=== PATIENT | female | born 1965 | race Caucasian/White ===

== ENCOUNTER 2021-02-20 12:17 | Emergency (ER) | payer OTHER, SELFPAY ==
--- NOTE | 2021-02-20 12:27 | XRR_ITS ---
PROCEDURE INFORMATION: Exam: XR Right Foot Exam date and time: 02/20/2021 12:27 PM Age: 55 years old Clinical indication: Injury or trauma; Other: Dropped something on 2nd toe; Blunt trauma; Toes; Right lesser toe(s); Additional info: Foot pain TECHNIQUE: Imaging protocol: XR Right foot. Views: 1 or 2 views. COMPARISON: No relevant prior studies available. FINDINGS: Bones/joints: Nondisplaced transverse fracture through the distal tuft of the 2nd digit. The rest of the osseous structures of the foot are preserved. The joint spaces are preserved. Soft tissues: Normal. XR/XR foot RT 2V [id number] IMPRESSION: Nondisplaced transverse fracture through the distal tuft of the 2nd digit.
[2021-02-20 12:41] VITALS: BP 135/81; PULSE 77; RESP 18; TEMP 36.2; O2SAT 95; BMI 30.7
--- NOTE | 2021-02-20 12:54 | ED_ITS ---
HPI - Extremity Problem General: Chief complaint: Extremity Injury, Lower Stated complaint: R foot injury Time Seen by Provider: 02/20/21 12:53 Source: patient Mode of arrival: ambulatory Limitations: no limitations History of Present Illness: HPI Narrative: Patient states last night she dropped a 20 pound orthopedic massager on her right foot. Bruising occurred almost immediately, has a ability to bear weight but complains of pain in the second toe. Small abrasion noted to the second toe MD Complaint: other (Bruising and mild edema noted to 2nd toe. ) Onset (ago): day(s) Pain Consistency: intermittent Location: right Severity scale (1-10): 5 Quality: dull Radiation: none Relieving factors: cold therapy, elevation, medication and rest Exacerbating factors: weight bearing, walking and exertion Associated symptoms: Reports no associated symptoms Review of Systems General: Reports: 10 or more systems reviewed and unremarkable except in HPI and below PFSH ED PFSH: Social History (Updated 11/26/20 @ 16:52 by Naren Skinner LPN) Smoking and tobacco status: never smoked Second hand smoke exposure: No Alcohol intake: never Desire information about alcohol rehabilitation?: No Desire information about substance/drug rehabilitation?: No Physical Exam Const: COMMON NORMALS: no acute distress, average body habitus, patient oriented x3, no limitations, healthy appearing, alert and well nourished HENMT: COMMON NORMALS: normocephalic, atraumatic, hearing grossly normal bilaterally, external ears normal, EAC's normal, TM's normal bilaterally, Normal external nose present, Normal nasal mucous membranes and turbinates present, moist oral mucous membranes and oropharynx normal HEAD & SCALP: normocephalic and atraumatic NOSE: Normal external nose present and Normal nasal mucous membranes and turbinates present EXTERNAL EAR: Yes external ears normal EXTERNAL AUDITORY CANAL: EAC's normal TYMPANIC MEMBRANE: TM's normal bilaterally Eye: COMMON NORMALS: Equal, round and reactive pupils present, EOMs intact bilaterally, conjunctivae normal, no scleral icterus, no papilledema, normal visual huffman by confrontation and fundi normal bilaterally CONJUNCTIVA: Yes conjunctivae normal PUPIL: Yes Equal, round and reactive pupils present DIRECT OPHTHALMOSCOPY: Yes no papilledema and Yes fundi normal bilaterally Neck/C-Spine: COMMON NORMALS: full ROM, no lymphadenopathy and no JVD Chest: COMMONS NORMALS: normal inspection of the chest, normal palpation of entire chest wall, normal inspection of the breasts and normal palpation of the breasts Breast/axilla inspection: Yes normal inspection of the breasts BREAST/AXILLA PALPATION: Yes normal palpation of the breasts Resp: COMMON NORMALS: normal respiratory effort, No retractions, No use of accessory muscles, clear to auscultation bilaterally and percussion normal AUSCULTATION: clear to auscultation bilaterally PERCUSSION: percussion normal Cardio: COMMON NORMALS: no JVD, regular rate, regular rhythm, S1 normal heart sound present, S2 normal heart sound present, No gallops present (Cardio), No clicks present (Cardio), No murmurs present (Cardio) and No rub (Cardio) RATE: regular rate RHYTHM: regular rhythm HEART SOUNDS: S1 normal heart sound present and S2 normal heart sound present GI: COMMON NORMALS: Normal to inspection, nondistended, normoactive bowel sounds present, Soft to palpation, non-tender, No hepatosplenomegaly present, no masses and no bruits PALPATION: Yes Soft to palpation and Yes No hepatosplenomegaly present : COMMON NORMALS: Yes normal external appearance, Yes normal appearance of the vagina, Yes normal appearance of the cervix, Yes normal bimanual exam, Yes No adnexal tenderness and Yes no masses BIMANUAL EXAM - VAGINA & UTERUS: Yes normal bimanual exam Extremity: RIGHT LOWER EXTREMITY: Yes foot & digits (Bruising noted to 2nd toe, extending to forefoot. ) Right foot and digits: Yes neurovascular exam (intact) Neuro: COMMON NORMALS: patient oriented x3 SENSORIUM/ORIENTATION: Yes alert Skin: GENERAL SKIN EXAM: ecchymosis (2nd toe of right foot, extending to forefoot.) TRAUMA: abrasion (2nd toe of right foot. ) Course ED course: Trauma noted to the second toe of right foot, abrasion near nail bed with ecchymosis extending to the forefoot. Last tetanus immunization 3 years ago. Patient can ambulate with a limp due to pain. Vital Signs: Vital signs: Vital Signs Temperature 97.1 F L 02/20/21 12:41 Pulse Rate 77 02/20/21 12:41 Respiratory Rate 18 02/20/21 12:41 Blood Pressure 135/81 02/20/21 12:41 Pulse Oximetry 95 02/20/21 12:41 MDM - Extremity (Nontraumatic) MDM Narrative: Medical decision making narrative: Splint in place patient will follow up with podiatry outpatient in relation to nondisplaced transverse fracture of distal tuft of second digit of the right foot. Imaging Data^: Xray Ortho: Attestation: I personally reviewed and interpreted this imaging study as follows: Radiologist's impression: [id number] [place], [place] [address]XHhy ReportSigned Patient: Moni Angel #: [id number]: 1965Acct#:[id number]/Sex: 55 / FADM Date: 02/20/21Loc: ERRoom/Bed:Attending Dr: Ordering Provider/Ordering MD: Za Beal MD Date of Service: 02/20/21 Procedure(s): XR foot RT 2V [id number] Accession Number(s): [id number] Report Number: [id number] PROCEDURE INFORMATION: Exam: XR Right Foot Exam date and time: 02/20/2021 12:27 PM Age: 55 years old Clinical indication: Injury or trauma; Other: Dropped something on 2nd toe; Blunt trauma; Toes; Right lesser toe(s); Additional info: Foot pain TECHNIQUE: Imaging protocol: XR Right foot. Views: 1 or 2 views. COMPARISON: No relevant prior studies available. FINDINGS: Bones/joints: Nondisplaced transverse fracture through the distal tuft of the 2nd digit. The rest of the osseous structures of the foot are preserved. The joint spaces are preserved. Soft tissues: Normal. XR/XR foot RT 2V [id number] IMPRESSION: Nondisplaced transverse fracture through the distal tuft of the 2nd digit. Dictated By:Santos Aguilar DOSigned By:Santos Aguilar DOSigned Date/Time:02/20/21 1521DD/ 1521 Discharge Plan Discharge Patient Disposition: Home Condition: Stable Prescriptions: No Action propranolol 160 mg capsule,extended release 24 hr 160 mg PO DAILY RF: 0 albuterol sulfate 90 mcg/actuation HFA aerosol inhaler 2 puff inhalation Q6H PRNRF: 0 hylan g-f 20 48 mg/6 mL syringe intra-articular RF: 0 acetaminophen 325 mg capsule 325 mg PO QID PRNRF: 0 cetirizine 10 mg tablet 10 mg PO DAILY PRNRF: 0 fluticasone propionate 50 mcg/actuation spray,suspension 1 spray intranasal DAILY RF: 0 loratadine 10 mg capsule 10 mg PO DAILY RF: 0 olopatadine 0.1 % drops 1 drp ophthalmic (eye) BID RF: 0 doxycycline hyclate 100 mg tablet 100 mg PO BID 7 Days Qty: 14 RF: 0 Discharge Orders: Discharge ED (Routine); Ordered 02/20/21 Ordered By: Cassia Hernandez Referrals: Deepak Sheehan DPM [Physician] - 1 week Discharge Diet: Usual diet Discharge Activity: Limit activity as instructed Patient Instructions: Opioid Safety Activity Restrictions/Additional Instructions: Wear splint until released my . Coding Level of Care Code ED Jewelry Salesperson for Gal Fwd Exam Comprehensive
--- NOTE | 2021-02-20 13:18 | PC.NURSE ---
Please note correction, it is the 2nd toe of right foot that has an abrasion and bruising. Area is cleaned with hydrogen peroxide, clean dry dressing in place and toe is diana wrapped with 3rd toe, patient education on diana wrapping and signs and symptoms to look for. Cap refill less than 3 seconds before and after procedure.
--- NOTE | 2021-02-20 14:17 | PC.NURSE ---
Patients second toe of right foot is now splinted with foam/metal strait splint and wrapped. Cap refill wnl before and after application.
[2021-02-20] MEDS: naproxen 500 mg Tablet PO (14:25)
[2021-02-20 15:42] VITALS: BP 127/84; PULSE 66; RESP 14; TEMP 36.8; O2SAT 99
--- NOTE | 2021-02-20 15:54 | PC.NURSE ---
Patient reports she would benefit from crutches, they are provided with education.
--- NOTE | 2021-02-20 15:55 | PC.NURSE ---
Please note patient did not ambulate out but was taken out by WC.
--- NOTE | 2021-02-24 08:21 | DCPLANNER ---
manager animation had message to schedule a follow up appointment for patient with ortho. manager animation called the ortho clinic, spoke with Deanne, gave clinic patients information. manager animation was told that patients information would be printed and reviewed. Clinic will call patient with appointment information. Patient has [employer] insurance, gearcase assembler emailed September, with [facility], patients information so that the authorization process could be started. manager animation noticed that patient has an address that is not local, gearcase assembler called phone number [phone], this is wrong number. manager animation also called phone number [phone], a voicemail was left for patient to return case briefer phone call.
--- NOTE | 2021-02-26 07:59 | DCPLANNER ---
Patient has a follow up appointment scheduled for Monday, February 26, 2021 at 2:[address] Sheehan at [facility]. Clinic will call patient with appointment information.
--- NOTE | 2021-03-03 14:47 | DCPLANNER ---
Patient had a follow up appointment scheduled for 02.26.21 - patient did attend appointment.
== END 2021-02-20 15:55 | disposition home or self-care (01) ==
PROVIDERS: Emergency Provider Nurse Practitioner Family
DX: S92.534A Nondisplaced fracture of distal phalanx of right lesser toe(s), initial encounter for closed fracture (principal); W20.8XXA Other cause of strike by thrown, projected or falling object, initial encounter
CPT/HCPCS: 73620; 99283; E0114

== ENCOUNTER → 2021-02-26 14:36 | Outpatient (BNVA) | payer OTHER, SELFPAY | PROVIDERS: Visit Provider Podiatrist Foot & Ankle Surgery | DX: S92.534A Nondisplaced fracture of distal phalanx of right lesser toe(s), initial encounter for closed fracture (principal); X58.XXXA Exposure to other specified factors, initial encounter | CPT/HCPCS: 73630 ==

== ENCOUNTER → 2021-03-29 11:22 | Outpatient (BNVA) | payer OTHER, SELFPAY | PROVIDERS: Referring Provider Nurse Practitioner; Visit Provider Specialist | DX: M25.569 Pain in unspecified knee (principal); M19.072 Primary osteoarthritis, left ankle and foot | CPT/HCPCS: 73560; 73565; 73630 ==

== ENCOUNTER 2021-04-20 11:57 | Outpatient (CLI) | payer OTHER, SELFPAY ==
--- NOTE | 2021-04-20 11:45 | MR_ITS ---
WS: [id number] MRI LEFT KNEE NONCONTRAST TECHNIQUE: Axial PD, coronal PD fat sat, coronal PD, sagittal PD, and sagittal PD fat-sat images obta ined. CLINICAL INFORMATION: M25.569 - Pain in unspecified knee COMPARISON: None. FINDINGS: Distal quadriceps and patella tendons are intact. Hypertrophic patella. Normal ACL and PCL. Chronic t hinning of the medial and lateral meniscus. Chronic intrasubstance signal abnormality in the medial a nd lateral meniscus. No acute appearing meniscal tears. Intra-articular calcified loose bodies. 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 Prominent venous varicosity in the prepatellar soft tissues Medial and lateral collateral ligaments are intact. No edema in the femoral condyles and tibial plate au. Moderate chondromalacia patella. No subchondral edema. Normal medial and lateral patellar retinac ulum. Lobulated popliteal cyst measuring 1.3 x 2.2 x 5.3 CM. MR/MR knee LT wo con* [id number] IMPRESSION: 1. Normal ACL and PCL. 2. Chronic thinning of the medial and lateral meniscus with intrasubstance sig nal abnormality. No acute appearing meniscal tears. 3. Calcified intra-articular loose bodies along the anterior joint space. 4. 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 No subchondral edema. 5. Moderate chondromalacia patella. Hypertrophic patella. 6. Lobulated popliteal cyst measuring 1.3 x 2.2 x 5.3 CM. [facility]bridge grading:
== END 2021-04-20 11:58 | disposition home or self-care (01) ==
LOC: RADSHAW 11:58
PROVIDERS: Visit Provider Specialist
DX: M71.22 Synovial cyst of popliteal space [Baker], left knee (principal); M22.42 Chondromalacia patellae, left knee
CPT/HCPCS: 73721

== ENCOUNTER 2021-06-02 14:22 | Emergency (ER) | payer OTHER, SELFPAY ==
[2021-06-02 14:26] VITALS: BP 105/74; PULSE 107; RESP 18; TEMP 36.6; O2SAT 95; BMI 32.3
--- NOTE | 2021-06-02 15:50 | XRR_ITS ---
PROCEDURE INFORMATION: Exam: XR Chest Exam date and time: 06/02/2021 3:50 PM Age: 55 years old Clinical indication: Cough; Additional info: Cough and congestion TECHNIQUE: Imaging protocol: XR of the chest. Views: 1 view. COMPARISON: CR XR knees AP WB w LT lmt ORTH 03/29/2021 11:28 AM FINDINGS: Lungs: Unremarkable. No consolidation. Pleural spaces: Unremarkable. No pleural effusion. No pneumothorax. Heart/Mediastinum: Unremarkable. No cardiomegaly. Bones/joints: Unremarkable. XR/XR chest 1V portable [id number] IMPRESSION: No acute findings.
[2021-06-02 16:44] LABS: Influenza A by IFA Positive (Negative)
[2021-06-02 16:45] LABS: Influenza B by IFA Negative (Negative); SARS Covid-2 Antigen Negative (Negative)
--- NOTE | 2021-06-02 17:18 | ED_ITS ---
HPI - COVID General: Chief Complaint: COVID symptoms Stated Complaint: COUGH/RUNNY NOSE/FATIGUE Time Seen by Provider: 06/02/21 17:17 Triage information: Has fever, cough or shortness of breath . No known COVID + exposure last 14 days History of Present Illness: HPI Narrative: Patient comes in today with fever, cough, and congestion for the last 2 to 3 days. 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 Patient appears mildly unwell but not toxic. Patient does report a history of asthma. Patient is in no acute distress. COVID 19 common symptoms: positive productive cough COVID Results: SARS-CoV-2 Antigen (Rapid) Negative (Negative) 06/02/21 15:35 06/02/21 Nasal/Oral Coronavirus 2019 PCR Pending 06/02/21 15:35 06/02/21 Review of Systems General: Reports: 10 or more systems reviewed and unremarkable except in HPI and below Resp: Reports: productive cough PFSH ED PFSH: Social History Second hand smoke exposure: No Alcohol intake: never Desire information about alcohol rehabilitation?: No Desire information about substance/drug rehabilitation?: No Physical Exam Const: COMMON NORMALS: no acute distress and patient oriented x3 GENERAL APPEARANCE: cooperative HENMT: COMMON NORMALS: normocephalic and Normal external nose present HEAD & SCALP: normal to inspection and normocephalic NOSE: Normal external nose present Eye: GENERAL EYE: appearance normal, both eyes and all related structures Neck/C-Spine: COMMON NORMALS: full ROM Chest: COMMONS NORMALS: normal inspection of the chest Resp: COMMON NORMALS: normal respiratory effort and clear to auscultation bilaterally EFFORT & INSPECTION: Yes able to speak in complete sentences AUSCULTATION: clear to auscultation bilaterally Cardio: COMMON NORMALS: regular rate and regular rhythm RATE: regular rate RHYTHM: regular rhythm GI: COMMON NORMALS: non-tender Extremity: COMMON NORMALS: normal to inspection Neuro: COMMON NORMALS: patient oriented x3 and moves all extremities Psych: COMMON NORMALS: mental status grossly normal and cooperative Skin: COMMON NORMALS: no rashes or lesions noted GENERAL SKIN EXAM: no rashes or lesions noted Course Vital Signs: Vital signs: Vital Signs Temperature 97.9 F 06/02/21 14:26 Pulse Rate 107 H 06/02/21 14:26 Respiratory Rate 18 06/02/21 14:26 Blood Pressure 105/74 06/02/21 14:26 Pulse Oximetry 95 06/02/21 14:26 MDM - COVID MDM Narrative: Medical decision making narrative: Patient comes in today with cough and congestion with clear nasal drainage and occasionally productive green sputum from the chest. On exam lungs are clear to auscultation. Skin is warm and dry. Vital signs are normal. Differential diagnosis includes pneumonia, sinusitis, COVID-19, influenza. Influenza was positive for type A. COVID-19 was negative. Reviewed exam with patient with recommendations for treatment for the flu with [id number] medications and plenty of fluids. Patient reported understanding. Patient was given 10 mg of dexamethasone due to her history of asthma to help with cough and congestion. Patient reported understanding of care plan and need for follow-up or return for worsening symptoms. Lab Data: Labs: Lab Results 06/02/21 06/02/21 15:35 15:35 Influenza Type A A g Positive H (Negative) Influenza Type B A g Negative (Negative) SARS-CoV-2 Ag (Rap id) Negative (Negative) COVID Results: SARS-CoV-2 Antigen (Rapid) Negative (Negative) 06/02/21 15:35 06/02/21 Nasal/Oral Coronavirus 2019 PCR Pending 06/02/21 15:35 06/02/21 Discharge Plan Discharge Patient Disposition: Home Clinical Impression: Influenza Condition: Stable Prescriptions: No Action propranolol 160 mg capsule,extended release 24 hr 160 mg PO DAILY RF: 0 albuterol sulfate 90 mcg/actuation HFA aerosol inhaler 2 puff inhalation Q6H PRNRF: 0 hylan g-f 20 48 mg/6 mL syringe intra-articular RF: 0 acetaminophen 325 mg capsule 325 mg PO QID PRNRF: 0 cetirizine 10 mg tablet 10 mg PO DAILY PRNRF: 0 fluticasone propionate 50 mcg/actuation spray,suspension 1 spray intranasal DAILY RF: 0 loratadine 10 mg capsule 10 mg PO DAILY RF: 0 olopatadine 0.1 % drops 1 drp ophthalmic (eye) BID RF: 0 doxycycline hyclate 100 mg tablet 100 mg PO BID 7 Days Qty: 14 RF: 0 (DME) Custom Molded Orthotics with metatarsal pad See Rx Instructions .Route .MEDSUPPLY Qty: 1 RF: 0 (DME) Custom open back shoes See Rx Instructions .Route .MEDSUPPLY Qty: 1 RF: 0 prednisone 10 mg tablet 10 mg PO DAILY 12 Days Qty: 42 RF: 0 Discharge Orders: Discharge ED (Routine); Ordered 06/02/21 Ordered By: Hung Lua Discharge Diet: Usual diet Discharge Activity: Increase activity as tolerated Patient Instructions: Influenza (ED) Activity Restrictions/Additional Instructions: Home and rest. Drink plenty of fluids. Use acetaminophen and ibuprofen for pain and discomfort. Follow-up with primary care for further instruction. Return to the ER for new concerns. Coding Level of Care Code ED Rail Washer for Gal Foster
[2021-06-02] MEDS: dexamethasone 10 mg/mL INJ IM (17:29)
[2021-06-03 15:05] LABS: Coronavirus Test Green County Not Detected
== END 2021-06-02 17:32 | disposition home or self-care (01) ==
PROVIDERS: Physician Assistant; Emergency Provider Nurse Practitioner Family
DX: J10.1 Influenza due to other identified influenza virus with other respiratory manifestations (principal); Z20.822 Contact with and (suspected) exposure to COVID-19
CPT/HCPCS: 71045; 87426; 87635; 87804; 96372; 99283; J1100

== ENCOUNTER 2021-06-07 15:59 | Emergency (ER) | payer OTHER, SELFPAY ==
[2021-06-07 16:33] VITALS: BP 112/76; PULSE 83; RESP 19; TEMP 36.3; O2SAT 96; BMI 32.3
--- NOTE | 2021-06-07 17:14 | XRR_ITS ---
PROCEDURE INFORMATION: Exam: XR Chest Exam date and time: 06/07/2021 5:14 PM Age: 55 years old Clinical indication: Cough; Additional info: Influenza TECHNIQUE: Imaging protocol: XR of the chest. Views: 1 view. COMPARISON: CR XR chest 1V portable [id number] 06/02/2021 4:07 PM FINDINGS: Lungs: Unremarkable. No consolidation. Pleural spaces: Unremarkable. No pleural effusion. No pneumothorax. Heart/Mediastinum: Unremarkable. No cardiomegaly. Bones/joints: Unremarkable. XR/XR chest 1V portable [id number] IMPRESSION: No acute findings.
--- NOTE | 2021-06-07 19:46 | W.ED.GENADLT ---
HPI - General Adult General: Chief complaint: General Medical Stated complaint: tightness in chest, enriquez when using inhaler Time Seen by Provider: 06/07/21 17:57 History of Present Illness: HPI narrative: Patient complains about burning in the upper part of her lungs after she uses inhaler. Was diagnosed with influenza on the . Has had symptoms since the . Onset (ago): hour(s) Associated symptoms: Reports no associated symptoms; Deny chest pain, dyspnea, headache(s), nausea, rash or vomiting Review of Systems Const: Denies: fever(s), chills or body aches Eyes: Denies: change in vision or blurry vision ENMT: Denies: throat pain or nasal congestion Card: Denies: chest pain or dyspnea on exertion Resp: Reports: non-productive cough and other (Burning logs when using inhaler); Denies: dyspnea or productive cough GI: Denies: abdominal pain, nausea or vomiting Musc: Denies: extremity pain Skin/Breast: Denies: rash Neuro: Denies: headache(s) Psych: Denies: anxiety or depression Gabe/Lymph: Denies: easy bruising PFSH ED PFSH: Social History Second hand smoke exposure: No Alcohol intake: never Desire information about alcohol rehabilitation?: No Desire information about substance/drug rehabilitation?: No Physical Exam Const: COMMON NORMALS: no acute distress, average body habitus and patient oriented x3 HENMT: COMMON NORMALS: normocephalic HEAD & SCALP: normal to inspection and normocephalic FACE & SINUS: normal facial exam Eye: COMMON NORMALS: conjunctivae normal GENERAL EYE: appearance normal, both eyes and all related structures CONJUNCTIVA: Yes conjunctivae normal Neck/C-Spine: COMMON NORMALS: no JVD Chest: COMMONS NORMALS: normal inspection of the chest Resp: COMMON NORMALS: normal respiratory effort and clear to auscultation bilaterally AUSCULTATION: clear to auscultation bilaterally Cardio: COMMON NORMALS: no JVD, regular rate and regular rhythm RATE: regular rate RHYTHM: regular rhythm GI: COMMON NORMALS: Normal to inspection, nondistended, normoactive bowel sounds present Extremity: COMMON NORMALS: normal to inspection and full ROM Neuro: COMMON NORMALS: patient oriented x3 Course Vital Signs: Vital signs: Vital Signs Temperature 97.4 F L 06/07/21 16:33 Pulse Rate 83 06/07/21 16:33 Respiratory Rate 19 H 06/07/21 16:33 Blood Pressure 112/76 06/07/21 16:33 Pulse Oximetry 96 06/07/21 16:33 Discharge Plan Discharge Patient Disposition: Home Clinical Impression: Influenza Condition: Stable Prescriptions: New Decadron 6 mg tablet 6 mg PO DAILY Qty: 7 RF: 0 Tessalon Perles 100 mg capsule 100 mg PO TID PRN (Reason: cough) Qty: 14 RF: 0 No Action propranolol 160 mg capsule,extended release 24 hr 160 mg PO DAILY RF: 0 albuterol sulfate 90 mcg/actuation HFA aerosol inhaler 2 puff inhalation Q6H PRNRF: 0 hylan g-f 20 48 mg/6 mL syringe intra-articular RF: 0 acetaminophen 325 mg capsule 325 mg PO QID PRNRF: 0 cetirizine 10 mg tablet 10 mg PO DAILY PRNRF: 0 fluticasone propionate 50 mcg/actuation spray,suspension 1 spray intranasal DAILY RF: 0 loratadine 10 mg capsule 10 mg PO DAILY RF: 0 olopatadine 0.1 % drops 1 drp ophthalmic (eye) BID RF: 0 doxycycline hyclate 100 mg tablet 100 mg PO BID 7 Days Qty: 14 RF: 0 (DME) Custom Molded Orthotics with metatarsal pad See Rx Instructions .Route .MEDSUPPLY Qty: 1 RF: 0 (DME) Custom open back shoes See Rx Instructions .Route .MEDSUPPLY Qty: 1 RF: 0 prednisone 10 mg tablet 10 mg PO DAILY 12 Days Qty: 42 RF: 0 Discharge Orders: Discharge ED (Routine); Ordered 06/07/21 Ordered By: Christiano Emery Discharge Diet: Usual diet Discharge Activity: Increase activity as tolerated Patient Instructions: Influenza (ED) Activity Restrictions/Additional Instructions: Follow-up with medical provider as directed. Take medications as prescribed. Return to the ER or your medical provider if condition worsens. Please read and understand discharge instructions. If any questions ask please. Coding Level of Care Code ED Vision Teacher for Gal Foster
== END 2021-06-07 18:29 | disposition home or self-care (01) ==
PROVIDERS: Emergency Provider Nurse Practitioner Family
DX: J11.1 Influenza due to unidentified influenza virus with other respiratory manifestations (principal)
CPT/HCPCS: 71045; 99282

== ENCOUNTER 2021-08-15 10:39 | Emergency (ER) | payer OTHER, SELFPAY ==
[2021-08-15 10:53] VITALS: BP 117/76; PULSE 85; RESP 14; TEMP 36.7; O2SAT 92; BMI 32.3
--- NOTE | 2021-08-15 11:21 | ED_ITS ---
HPI - Extremity Problem General: Chief complaint: Extremity Injury, Upper Stated complaint: Cut finger Left hand Time Seen by Provider: 08/15/21 10:58 History of Present Illness: Patient is a 55-year-old female comes to the ED with a laceration to left index finger. Injury occurred just prior to arrival. Patient was trying to get a plastic tie off of a collar for she and she used a knife. The knife slipped in caused a laceration to the distal tip of her left index finger. Patient is up-to-date on her tetanus. Associated symptoms: Deny chest pain, fever(s) or rash Review of Systems Const: Denies: fever(s), chills or fatigue Eyes: Denies: change in vision or eye discomfort ENMT: Denies: throat pain, odynophagia, nasal discharge or nasal congestion Card: Denies: chest pain, palpitations, edema, swelling of feet/ankles, dyspnea on exertion or orthopnea Resp: Denies: dyspnea, productive cough or non-productive cough GI: Denies: abdominal pain, nausea, vomiting, diarrhea, constipation or hematochezia : Denies: flank pain, dysuria or hematuria Musc: Denies: neck pain, back pain or extremity swelling Skin/Breast: Reports: new lesions (Laceration to distal tip of left index finger.); Denies: rash Neuro: Denies: headache(s), numbness in extremities or weakness in extremities PFS ED PFSH: Medical History (Updated 08/16/21 @ 13:14 by LIVIA Alvarez) No pertinent family history Surgical History (Updated 08/16/21 @ 13:14 by LIVIA Alvarez) No pertinent past surgical history Social History Smoking and tobacco status: never smoked Second hand smoke exposure: No Alcohol intake: never Desire information about alcohol rehabilitation?: No Desire information about substance/drug rehabilitation?: No Physical Exam Const: COMMON NORMALS: no acute distress, patient oriented x3, healthy appearing and alert GENERAL APPEARANCE: cooperative and comfortable HENMT: COMMON NORMALS: normocephalic HEAD & SCALP: normocephalic MOUTH: Normal oral and palatal mucosa present THROAT: posterior oropharynx normal and uvula midline Neck/C-Spine: COMMON NORMALS: supple GENERAL: Yes normal visual inspection Resp: COMMON NORMALS: normal respiratory effort, No retractions, No use of accessory muscles and clear to auscultation bilaterally AUSCULTATION: clear to auscultation bilaterally Cardio: COMMON NORMALS: regular rate, regular rhythm, S1 normal heart sound present, S2 normal heart sound present, No gallops present (Cardio), No clicks present (Cardio), No murmurs present (Cardio) and Peripheral pulses 2+ throughout RATE: regular rate RHYTHM: regular rhythm HEART SOUNDS: S1 normal heart sound present and S2 normal heart sound present PERIPHERAL PULSES: Peripheral pulses 2+ throughout GI: COMMON NORMALS: Normal to inspection, nondistended, normoactive bowel sounds present, Soft to palpation, non-tender and no masses PALPATION: Yes Soft to palpation : COMMON NORMALS: Yes no CVA tenderness BLADDER/KIDNEY EXAM: Yes no CVA t enderness Back/Pelvis: COMMON NORMALS: no CVA tenderness Extremity: NARRATIVE EXTREMITY EXAM: Left index finger. Distal pad has a superficial 0.75 cm linear laceration. No active bleeding. It is clean and no foreign body present. No nailbed damage. Neuro: COMMON NORMALS: patient oriented x3 and moves all extremities SENSORIUM/ORIENTATION: Yes alert Skin: GENERAL SKIN EXAM: dry skin Procedures Laceration Laceration 1: Site: hand (Distal tip of index finger) Side (If applicable): left Size (cm): 0.75 Description: linear and clean Depth: simple, single layer Local Anesthetic: lidocaine 1% Amount of anesthesia used (mL): 5 Pre-repair: irrigated extensively (With normal saline and cleaned with Betadine iodine.) Skin layer closed with: nylon Size (cm): 4-0 Number of sutures: 2 Technique: simple, interrupted Course Vital Signs: Vital signs: Vital Signs Temperature 98.1 F 08/15/21 10:53 Pulse Rate 74 08/15/21 12:38 Respiratory Rate 15 08/15/21 12:38 Blood Pressure 142/63 08/15/21 12:38 Pulse Oximetry 99 08/15/21 12:38 MDM - Extremity (Nontraumatic) Medical Decision Making Patient is a 55-year-old female comes the ED with small superficial laceration pain left index finger. No nail bed damage noted. Laceration site was irrigated extensively normal saline and cleaned with Betadine iodine. Lidocaine 1% was used as local and 2 sutures were placed to close laceration site. Patient was discharged home and given follow-up instructions. She was sent home with a prophylactic dose of antibiotic to prevent infection. Return to ED prec autions given. Patient is done agree with plan. Discharge Plan Discharge Patient Disposition: Home Clinical Impression: Finger laceration Qualifiers: Encounter type: initial encounter Finger: index finger Foreign body presence: without foreign body Laterality: left Condition: Stable Prescriptions: New doxycycline hyclate 100 mg capsule 100 mg PO BID 4 Days Qty: 8 0RF No Action propranolol 160 mg capsule,extended release 24 hr 160 mg PO DAILY 0RF albuterol sulfate 90 mcg/actuation HFA aerosol inhaler 2 puff inhalation Q6H PRN0RF hylan g-f 20 48 mg/6 mL syringe intra-articular 0RF acetaminophen 325 mg capsule 325 mg PO QID PRN0RF cetirizine 10 mg tablet 10 mg PO DAILY PRN0RF fluticasone propionate 50 mcg/actuation spray,suspension 1 spray intranasal DAILY 0RF Rx Instructions: administer into each nostril loratadine 10 mg capsule 10 mg PO DAILY 0RF olopatadine 0.1 % drops 1 drp ophthalmic (eye) BID 0RF Rx Instructions: separate doses by at least 6-8 hours (DME) Custom Molded Orthotics with metatarsal pad See Rx Instructions .Route .MEDSUPPLY Qty: 1 0RF Rx Instructions: As directed by [facility] (DME) Custom open back shoes See Rx Instructions .Route .MEDSUPPLY Qty: 1 0RF Rx Instructions: As directed Tessalon Perles 100 mg capsule 100 mg PO TID PRN (Reason: cough) Qty: 14 0RF Discharge Orders: Discharge ED (Routine); Ordered 08/15/21 Ordered By: Rolando Malhotra Discharge Diet: Regular Discharge Activity: Increase activity as tolerated Patient Instructions: Finger Laceration (ED) Activity Restrictions/Additional Instructions: Take full course of antibiotics as prescribed. Keep laceration site clean and dry for the next 24 hours. Then after that you can clean and re-bandage daily. Apply triple antibiotic ointment on laceration site daily as well and make sure to keep keep it covered. Watch for signs of infection such as redness, warmth, increased tenderness and puslike drainage. If you see the signs of infection return to the ED, urgent care or PCP for reevaluation. call your PCP to schedule a follow-up appointment for reevaluation and suture removal in about 7-10 days. Follow discharge plans as discussed. You can return to the ED if symptoms worsen. 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
[2021-08-15] MEDS: lidocaine 1% INJ 20 mL INJECTION (11:34)
[2021-08-15] MEDS: neomycin-poly-bacitracin oint 0.9 gm Pkt 1 APPLIC TOPICAL (12:30)
[2021-08-15 12:38] VITALS: BP 142/63; PULSE 74; RESP 15; O2SAT 99
== END 2021-08-15 12:41 | disposition home or self-care (01) ==
PROVIDERS: Emergency Provider Physician Assistant
DX: S61.211A Laceration without foreign body of left index finger without damage to nail, initial encounter (principal); W26.0XXA Contact with knife, initial encounter
CPT/HCPCS: 12001; 99282

== ENCOUNTER 2021-09-01 06:00 | Outpatient (RCR) | payer OTHER, SELFPAY | END 2021-09-08 23:59 | disposition home or self-care (01) | LOC: SPT 06:00 | PROVIDERS: Visit Provider Nurse Practitioner Family | DX: M79.673 Pain in unspecified foot (principal) | CPT/HCPCS: 97161 ==

== ENCOUNTER 2021-09-09 16:35 | Outpatient (CLI) | payer OTHER, SELFPAY ==
--- NOTE | 2021-09-09 16:42 | MR_ITS ---
WS: [id number] MRI LEFT ANKLE without CONTRAST. COMPARISON: Foot radiograph 03/29/2021. Multiplanar, multisequence imaging is performed without contrast. Focal moderate area of increased T2 signal and thickening of the insertion site of the Achilles tendo n. Area of involvement extends over a length of 14 mm. Very small amount of edema in the adjacent ent hesopathy. Marrow edema and the posterior lateral calcaneus. There is no fluid surrounding the tendon . The plantar aponeurosis is normal. Subtalar joint is normal. There is marrow edema involving just less than 50% of the intermediate cuneiform. No fracture identif ied. MR/MR ankle LT wo con* [id number] IMPRESSION: 1. Moderate insertional Achilles tendinopathy. 2. Small amount of marrow edema in the Achilles enthesopathy. Marrow edema als o extends along the posterior lateral calcaneus. 3. Additional marrow edema in the intermediate cuneiform.
== END 2021-09-09 16:36 | disposition home or self-care (01) ==
LOC: RAD 16:37
PROVIDERS: Visit Provider Podiatrist Foot & Ankle Surgery
DX: M76.62 Achilles tendinitis, left leg (principal); R60.0 Localized edema
CPT/HCPCS: 73721

== ENCOUNTER 2021-10-08 08:42 | Day surgery (SDC) | payer OTHER, SELFPAY ==
[2021-10-07 17:24] VITALS: BMI 32.3
[2021-10-08] VITALS (9 sets, daily range): BP systolic 101–145; BP diastolic 67–92; PULSE 78–101; RESP 17–18; TEMP 36.6–37.1; O2SAT 95–98
--- NOTE | 2021-10-08 | SCC_ITS ---
Procedure done: Left Ronald's resection with primary Achilles repair. CPT codes 44485 and 47642 1 second of fluoroscopic guidance, for a cumulative dose of 0.9 mGy, was provided to Dr. Sheehan by the radiology department. C-arm images of the RIGHT heel were saved for the patient's permanent record. [facility]
--- NOTE | 2021-10-08 09:25 | ANES.PREANE2 ---
Pre-Anesthetic Assessment Height/Weight: Height 1.68 m Weight 90.718 kg Temp Pulse Resp BP Pulse Ox 98.8 F 101 H 18 145/92 96 10/08/21 09:03 10/08/21 09:03 10/08/21 09:03 10/08/21 09:03 10/08/21 09:03 Preop Diagnosis: left Ronald's and Achilles tendinopathy. Operation Date: 10/08/21 10:10 Proposed Procedures p Achilles Tendon Repair Foot 86193/72085/m92.60/m76.60(Left) - Deepak Sheehan DPM s [place] Resection(Left) - Deepak Sheehan DPM Familial anesthetic complications: None Was Beta Mar taken within 24 hours: N/A (Patient held propanalol ) Was Clonidine taken within 24 hours: N/A Last intake: Intake Last Liquid Date 10/07/21 Last Liquid Time 22:30 Last Solid Date 10/07/21 Last Solid Time 18:00 Social No alcohol and No tobacco Exam alert, oriented x 3, clear to auscultation bilaterally and regular rate & rhythm Airway Submandibular: within normal limits Cervical ROM: within normal limits Mallampati: Class II Dentition: full Pulmonary Asthma CV/HEM None reported None reported Hepatic None reported GI Gastroesophageal Reflux Disease (Symptomatic reflux on empty stomach ) Metabolic None reported Musc/skel None reported Neuropsych None reported Anesthetic Plan ASA status: 2 Anesthesia: Anesthesia Evaluation, General and Regional (specify below) (Popliteal block for post op pain control ) Other: Patient request nerve block. We discussed risk and benefits of nerve block for post op pain control including management of pain and titration of pain medications as signs/symptoms of nerve block wearing off begin to appear and/or prior bed. We discussed risk of failed nerve block, vascular injury or other vital structure injury, abscess/infection, LAST, and nerve injury. We discussed risk and benefits of general anesthesia including PONV, sore throat (sometimes severe), corneal abrasion, positioning and peripheral nerve injuries, life threatening allergic reaction, post operative ICU admission requiring prolonged intubation, stroke, heart attack, , and rare incidences of recall. Patient consents to proceed with general anesthesia. Risk of > 500 ml blood loss (7ml/kg in children): No Medications/Allergies Home Medications Medication Instructions Recorded Confirmed Last Taken Type acetaminophen 325 mg capsule 325 mg PO QID PRN 11/26/20 10/08/21 10/07/21 History albuterol sulfate 90 mcg/actuation 2 puff INHALATION Q6H PRN 11/26/20 10/07/21 Unknown History aerosol inhaler cetirizine 10 mg tablet 10 mg PO DAILY 11/26/20 10/07/21 Unknown History fluticasone propionate 50 1 spray INTRANASAL DAILY 11/26/20 10/07/21 Unknown History mcg/actuation nasal spray,suspension loratadine 10 mg capsule 10 mg PO DAILY 11/26/20 10/07/21 Unknown History olopatadine 0.1 % eye drops 1 drp OPHTHALMIC (EYE) BID 11/26/20 10/08/21 10/05/21 History propranolol 160 mg capsule,24 160 mg PO DAILY 11/26/20 10/08/21 10/05/21 History hr,extended release Custom Molded Orthotics with #1 ea 03/29/21 09/07/21 Unknown Rx metatarsal pad Custom open back shoes #1 ea 03/29/21 09/07/21 Unknown Rx benzonatate 100 mg capsule 100 mg PO TID PRN #14 cap 06/07/21 10/07/21 Unknown Rx (Natalie Oakley) Allergies Allergy/AdvReac Type Severity Reaction Status Date / Time cephalexin [From Keflex] Allergy ALGY-Hives Verified 10/07/21 17:18 clindamycin Allergy ALGY-Hives Verified 10/07/21 17:18 codeine Allergy ALGY-Hives Verified 10/07/21 17:18 hydrocodone Allergy ALGY-Hives Verified 10/07/21 17:18 oxycodone Allergy ALGY-Hives Verified 10/07/21 17:18 Penicillins Allergy ALGY-Anaphy Verified 10/07/21 17:18 laxis Sulfa (Sulfonamide Allergy ALGY-Hives Verified 10/07/21 17:18 Antibiotics) [facility] Anesthesia Medical History No pertinent family history Surgical History No pertinent past surgical history Social History Smoking and tobacco status: never smoked Second hand smoke exposure: No Alcohol intake: never Desire information about alcohol rehabilitation?: No Desire information about substance/drug rehabilitation?: No Data Anesthesia Cardiac Studies: No Data to Display
[2021-10-08] MEDS: CELEcoxib 200 mg Capsule 400 MG PO (09:27)
[2021-10-08] MEDS: gabapentin 300 mg Capsule PO (09:27)
[2021-10-08] MEDS: sodium chloride 0.9% 1,000 ML 30 ML IV (09:29)
--- NOTE | 2021-10-08 09:34 | P.HP_ITS ---
Providers/Chief Complaint Chief Complaint: juvenile osteochondrosis of tarsus, tendinitis ach History of Present Illness Established 56 year old female patient presenting? to clinic for follow on plantar fasciitis, Hagland deformity, and Achilles tendonitis all to the left.? Plantar fascia pain on the left is resolved, she now only has pain at the Ronald's deformity and Achilles insertion.?Patient states that she belives that PT is causing more harm than good. Patient rates her discomfort at a 4/10. Patient has been doing at home stretching along with wearing custom molded orthotics.? Patient denies any subjective nausea, vomiting, fever, chills, shortness of breath or chest pain. Review of Systems General: Reports: 10 or more systems reviewed and unremarkable except in HPI and below Const: Denies: fever(s) or chills Eyes: Denies: change in vision Card: Denies: chest pain or palpitations Resp: Denies: dyspnea or productive cough GI: Denies: abdominal pain, nausea or vomiting : Denies: flank pain Musc: Reports: extremity pain Skin/Breast: Denies: rash Neuro: Denies: numbness in extremities, sensory changes or frequent falls Psych: Denies: suicidal ideation Gabe/Lymph: Denies: easy bruising Medications/Allergies Home Medications Medication Instructions Recorded Confirmed Last Taken Type acetaminophen 325 mg capsule 325 mg PO QID PRN 11/26/20 10/08/21 10/07/21 History albuterol sulfate 90 mcg/actuation 2 puff INHALATION Q6H PRN 11/26/20 10/07/21 Unknown History aerosol inhaler cetirizine 10 mg tablet 10 mg PO DAILY 11/26/20 10/07/21 Unknown History fluticasone propionate 50 1 spray INTRANASAL DAILY 11/26/20 10/07/21 Unknown History mcg/actuation nasal spray,suspension loratadine 10 mg capsule 10 mg PO DAILY 11/26/20 10/07/21 Unknown History olopatadine 0.1 % eye drops 1 drp OPHTHALMIC (EYE) BID 11/26/20 10/08/21 10/05/21 History propranolol 160 mg capsule,24 160 mg PO DAILY 11/26/20 10/08/21 10/05/21 History hr,extended release Custom Molded Orthotics with #1 ea 03/29/21 09/07/21 Unknown Rx metatarsal pad Custom open back shoes #1 ea 03/29/21 09/07/21 Unknown Rx benzonatate 100 mg capsule 100 mg PO TID PRN #14 cap 06/07/21 10/07/21 Unknown Rx (Tessalmaria guadalupe Perlcarlos) Allergies Allergy/AdvReac Type Severity Reaction Status Date / Time cephalexin [From Keflex] Allergy ALGY-Hives Verified 10/07/21 17:18 clindamycin Allergy ALGY-Hives Verified 10/07/21 17:18 codeine Allergy ALGY-Hives Verified 10/07/21 17:18 hydrocodone Allergy ALGY-Hives Verified 10/07/21 17:18 oxycodone Allergy ALGY-Hives Verified 10/07/21 17:18 Penicillins Allergy ALGY-Anaphy Verified 10/07/21 17:18 laxis Sulfa (Sulfonamide Allergy ALGY-Hives Verified 10/07/21 17:18 Antibiotics) PFSH PFSH: Medical History No pertinent family history Surgical History No pertinent past surgical history Social History Smoking and tobacco status: never smoked Second hand smoke exposure: No Alcohol intake: never Desire information about alcohol rehabilitation?: No Desire information about substance/drug rehabilitation?: No Vital Signs Vitals Signs: Last Vital Signs Temp 98.8 F 10/08/21 09:03 Pulse 101 H 10/08/21 09:03 Resp 18 10/08/21 09:03 BP 145/92 10/08/21 09:03 Pulse Ox 96 10/08/21 09:03 Weight: Weight last 48 hrs Weight 200 lb Physical Exam Narrative: EXAM NARRATIVE: Patient is alert and oriented ?3 and in no acute distress.? The following is a focused bilateral lower extremity exam. VASCULAR: Dorsalis pedis and posterior tibial arteries palpable +2.? Capillary refill time less than 3 seconds to the distal hallux bilaterally. Calf is supple and nontender proximally and distally.? No pedal edema appreciated.? Pedal hair growth present. NEUROLOGICAL: Epicritic and protopathic sensations grossly intact to the lower extremities.? +2 Achilles tendon reflex noted bilaterally.? Negative Tinel sign upon percussion of lower extremity nerves. DERMATOLOGICAL: No open wound to the right second toe.? Nail is intact nailbed intact.? No warmth or erythema, no drainage. MUSCULOSKELETAL: ? Osseous prominence of the left posterior heel with tenderness palpation at the left posterior heel and at the medial band of the plantar fascia, left.? Ankle joint dorsiflexion 10 degrees beyond neutral. CARDIOVASCULAR: S1, S2, normal rate, normal rhythm. Dorsalis pedis and posterior tibial arteries palpable. LUNGS: Clear to auscltation, no use of acessory muscles, no crackles or wheezes. Const: Feet Left: 1. pain at hagl[place] and achilles insertion Data Other data: [employer] [address] [place] [id number] Magnetic Resonance Report Signed Patient: Moni Angel Unit #: [id number] : 1965 Age/Sex: 56 / F ADM Date: 09/09/21 Loc: [facility] Room/Bed: Attending Dr: Deepak Sheehan DPM Ordering Provider/Ordering MD: Deepak Sheehan DPM Date of Service: 09/09/21 Procedure(s): MR ankle LT wo con* [id number] Accession Number(s): [id number] Report Number: [id number] WS: [id number] MRI LEFT ANKLE without CONTRAST. COMPARISON: Foot radiograph 03/29/2021. Multiplanar, multisequence imaging is performed without contrast. Focal moderate area of increased T2 signal and thickening of the insertion site of the Achilles tendon. Area of involvement extends over a length of 14 mm. Very small amount of edema in the adjacent enthesopathy. Marrow edema and the posterior lateral calcaneus. There is no fluid surrounding the tendon. The plantar aponeurosis is normal. Subtalar joint is normal. There is marrow edema involving just less than 50% of the intermediate cuneiform. No fracture identified. MR/MR ankle LT wo con* [id number] IMPRESSION: ? 1.? Moderate insertional Achilles tendinopathy. 2.? Small amount of marrow edema in the Achilles enthesopathy. Marrow edema also extends along the posterior lateral calcaneus. 3.? Additional marrow edema in the intermediate cuneiform. ? Dictated By: Carol Hurtado DO Signed By: Carol Hurtado DO S A&P Assessment and plan (1) Ronald's deformity of left heel: Status: Acute (2) Achilles tendinosis of left lower extremity: Status: Acute (3) Left foot pain: Status: Acute Plan Patient having increased pain since therapy.? Wishing to discuss surgical intervention states that she had her right Ronald's resection and Achilles debridement performed in [place] and was scheduled for left just prior to moving.? She has failed conservative treatments for greater than a year to the left.? Previous evaluations have included x-ray.? MRI shows Ronald's with Ac hilles tendinosis. Patient wishes to proceed with surgical intervention with Ronald's resection and primary kills repair. Risks include but are not limited to pain, bleeding, numbness, infection, chronic numbness, chronic edema, neuritis, paresthesias, surgical site dehiscence, Achilles rupture, altered gait, altered mechanics, deep vein thrombosis, heart attack stroke and . Patient wishes to proceed. She is n.p.o. since midnight. Informed consent signed by patient and myself. I initialed her left lower extremity. Left Ronald's resection and Achilles repair. Prone, OR table, general anesthetic, popliteal block. Duration procedure 60 minutes. 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
--- NOTE | 2021-10-08 09:39 | W.PM.OPSUD ---
Surgery/Procedure H&P Update DATE OF PROCEDURE: October 08, 2021 DATE H&P PERFORMED: 10/08/21 CHANGES TO PREVIOUS DOCUMENTATION: none PREOP DIAGNOSIS: left Ronald's and Achilles tendinopathy. PLANNED PROCEDURE: Operation Date: 10/08/21 10:10 Proposed Procedures p Achilles Tendon Repair Foot [id number]/72631/m92.60/m76.60(Left) - Deepak Sheehan DPM s [place] Resection(Left) - Deepak Sheehan DPM
--- NOTE | 2021-10-08 09:43 | P.OP_ITS ---
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 Post-op diagnosis: Same Procedure done: Left Ronald's resection with primary Achilles repair. CPT codes 65479 and 51156 Implants: 3-0 Vicryl, 3-0 nylon, 1cc Interfyl by arthrex, Arthrex speed bridge. Surgeon: Deepak Sheehan D.P.M. Veterinary Technologist: Pedro Estimated blood loss: 5 34 minutes IV fluids: None Urine output: None Complications: None Brief History: Patient having increased pain since therapy.? Wishing to discuss surgical intervention states that she had her right Ronald's resection and Achilles debridement performed in [place] and was scheduled for left just prior to moving.? She has failed conservative treatments for greater than a year to the left.? Previous evaluations have included x-ray.??MRI shows Ronald's with Achilles tendinosis.? Patient wishes to proceed with surgical intervention with Ronald's resection and primary kills repair.? Risks include but are not limited to pain, bleeding, numbness, infection, chronic numbness, chronic edema, neuritis, paresthesias, surgical site dehiscence, Achilles rupture, altered gait, altered mechanics, deep vein thrombosis, heart attack stroke and .? Patient wishes to proceed.? She is n.p.o. since midnight.? Informed consent signed by patient and myself.? I initialed her left lower extremity. Procedure: Under mild sedation the patient was brought to the operating room and remained on the gurney in supine position where general anesthetic was introduced by the anesthesia service. Of note she received a left popliteal block per anesthesia preoperatively. A well-padded thigh tourniquet at the left thigh was then applied. The patient was then positioned prone with appropriate padding and offloading onto the operating room table. The left lower extremity was then scrubbed, prepped and draped utilizing normal aseptic technique. Left foot and ankle was exanguinated with an Esmarch bandage and the left thigh tourniquet inflated to 300 mmHg. Attention was directed to the left posterior Achilles and calcaneus where a fishhook incision was performed midline to the Achilles at the watershed zone curvilinear medially and then back to midline at the insertion of the Achilles tendon inferiorly. This was done with a #15 blade full-thickness through skin down to and through peritenon with a flap retracted laterally. The Achilles tendon was reflected off of the posterior calcaneus with the exception of a more lateral attachment inferiorly to maintain length and resting tension. A sagittal saw utilized to resect the Ronald's deformity which was then passed from operative field and all rough edges smoothed, intraoperative fluoroscopy confirmed that the Achilles insertional enthesophyte as well as Ronald's resection was adequately resected, all rough edges were smoothed and the incision was flushed with saline solution followed by reattachment of the Achilles tendon utilizing a Arthrex speed bridge with a total of 4 anchors to high to low with excellent bony apposition and compression noted and resting tension appropriate at the Achilles. Suture tails were trimmed flush followed by flowable amnion by Arthrex this was Interfyl. The peritenon and subcutaneous tissue closed with 3-0 Vicryl and skin closed with 3-0 nylon in a horizontal mattress. Incision was then dressed with jumpstart, 4 x 4's, Kerlix, 4 inch Nikhil wrap followed by a cam boot with an Achilles wedge to maintain equinus position. Tourniquet was deflated and a prompt hyperemic response was noted to the distal digits of the left foot. Patient tolerated the procedure and anesthesia well and was transferred to the PACU with vital signs stable and vascular status intact. Following a period of postop monitoring she will be discharged home was given 15 mg morphine tablets to be taken every 6 hours as needed for pain total of 28 tablets dispensed for 7-day supply with no plans for refill. She already has a knee scooter lined up to remain postop nonweightbearing for at least 6 weeks. Will be following up Monday next week in podiatry clinic for her first dressing change.
[2021-10-08] MEDS: vancomycin 1,000 MG in sodium chloride 0.9% 250 ML 250 MG IV (09:45)
--- NOTE | 2021-10-08 09:50 | P.ANES_ITS ---
Anesthesia Procedures Procedure/Date: 10/08/21 Nerve Block ^: Nerve Block 1: Main Anesthesia: general anesthesia Time Out Performed: Yes ([id number]) Consent: requested by attending/covering physician, from patient, risks and bene fits reviewed and patient agrees to proceed Nerve block location: popliteal Anesthesia monitors applied: pulse oximetry, EKG and BP cuff Nerve block position: supine Anesthetic Used: ropivicaine 0.5% Amount of anesthesia used (mL): 20 Ultrasound used to: recognize landmarks Nerve Stimulator Used?: Yes (Motor response : eversion . Response lost at 0.4 mA) Interscalene/Femoral BLK: 4 stimuplex 21 g needle used for position and inplane approach, visualize local anesthetic spread and no vascular puncture identified Injection: neg aspiration of heme Patient Tolerated Procedure: well Complications: none Additional Comments: After time out sterile prep, using sterile technique, and using real time US guidance for target selection needle was inserted with real time visualization of needle entry and real time visualization of needle advancement toward intende d target. Negative aspiration. LA injected incrementally with negative aspiration every 5 cc and real time US visualization of LA spread throughout procedure. Tolerated well. Image(s) saved.
[2021-10-08] MEDS: morphine IR 15 mg Tablet PO (12:15)
--- NOTE | 2021-10-08 13:06 | ANE.PACU2 ---
Inpatient post-anesthesia follow up: Airway intact: Yes Vital signs: Temperature 97.8 F Pulse Rate 78 Respiratory Rate 17 Blood Pressure 115/88 Pulse Oximetry 97 Oxygen Delivery Me thod Room Air Oxygen Flow Rate Fraction of Inspir ed Oxygen Hydration adequate: Yes Nausea and vomiting: No Pain level: 5 Mental status: Baseline Additional Comments: Patient reports pain in back of foot however appears comfortable overall. Suspect component of sapheno
== END 2021-10-08 13:09 | disposition home or self-care (01) ==
PROVIDERS: Visit Provider Podiatrist Foot & Ankle Surgery
PROC: (CPT 27650; principal; 2021-10-08 10:00)
PROC: (CPT 27650; 2021-10-08 10:00)
DX: M92.62 Juvenile osteochondrosis of tarsus, left ankle (principal); M67.88 Other specified disorders of synovium and tendon, other site; M79.672 Pain in left foot; J45.909 Unspecified asthma, uncomplicated; K21.9 Gastro-esophageal reflux disease without esophagitis
CPT/HCPCS: 27650; 28120; 64450; 76000; 76942; C1713; C1734; J0330; J1100; J1200; J2250; J2405; J2704; J2795; J3010; J3370; J3490; J7030; J7050; L3332

== ENCOUNTER → 2021-11-10 13:00 | Outpatient (BNVA) | payer OTHER, SELFPAY | PROVIDERS: Referring Provider Nurse Practitioner; Visit Provider Specialist | DX: M53.3 Sacrococcygeal disorders, not elsewhere classified (principal); G89.29 Other chronic pain; M25.552 Pain in left hip | CPT/HCPCS: 73502; 99204; 99213 ==

== ENCOUNTER → 2021-11-23 11:07 | Outpatient (BNVA) | payer OTHER, SELFPAY | PROVIDERS: Visit Provider Physician Assistant | DX: M41.9 Scoliosis, unspecified (principal); M47.818 Spondylosis without myelopathy or radiculopathy, sacral and sacrococcygeal region | CPT/HCPCS: 72110; 99203 ==

== ENCOUNTER 2021-12-15 08:50 | Outpatient (CLI) | payer OTHER, SELFPAY ==
--- NOTE | 2021-12-15 08:45 | MR_ITS ---
WS: [id number] MRI LUMBAR SPINE NONCONTRAST TECHNIQUE: Sagittal T1, T2 and STIR imaging. Axial T1 and T2 imaging. CLINICAL INFORMATION: Lumbar back pain COMPARISON: None. FINDINGS: Mild lumbar curve. No acute compression. No high-grade central canal stenosis. L1-L2: Normal. L2-L3: Mild annular bulging. Mild facet arthropathy. Spinal canal and foramen are patent. L3-L4: Mild annular bulging. Spinal canal and foramen are patent. L4-L5: Mild annular bulging. Small RIGHT foraminal protrusion slightly impinges the exiting RIGHT L4 nerve root. Recommend correlation for RIGHT L4 nerve root symptoms. Tiny annular fissure. LEFT forame n is patent. Mild facet arthropathy. L5-S1: No significant disc bulging. Mild LEFT facet arthropathy. Spinal canal and foramen are patent. Small central disc protrusions C5-C6 and C6-C7 on the cervical spine supervisor logging imaging. MR/MR lumbar spine wo con* [id number] IMPRESSION: 1. Mild lumbar curve. No acute compression. No high-grade central canal stenos is. 2. RIGHT eccentric disc bulging L4-L5 with a small annular fissure. Slight con tact of the exiting RIGHT L4 nerve root with a small RIGHT foraminal protrusion . Mild RIGHT foraminal narrowing. Correlation for RIGHT L4 nerve root symptoms. 3. Spinal canal and foramen are otherwise patent. 4. Mild facet arthropathy L3-L4 L4-L5 and LEFT L5-S1. 5. Tiny shallow protrusions in the cervical spine seen on the supervisor logging imaging at C5-C6 and C6-C7 with slight contact of the cervical cord at C5-C6.
== END 2021-12-15 08:51 | disposition home or self-care (01) ==
LOC: RAD 08:57
PROVIDERS: Visit Provider Physician Assistant
DX: M54.50 Low back pain, unspecified (principal)
CPT/HCPCS: 72148

== ENCOUNTER → 2021-12-21 09:58 | Outpatient (BNVA) | payer OTHER, SELFPAY | PROVIDERS: Visit Provider Physician Assistant | DX: M47.816 Spondylosis without myelopathy or radiculopathy, lumbar region (principal) | CPT/HCPCS: 99213 ==

== ENCOUNTER → 2021-12-29 13:51 | Outpatient (BNVA) | payer OTHER, SELFPAY | PROVIDERS: Visit Provider Podiatrist Foot & Ankle Surgery | DX: M67.872 Other specified disorders of synovium, left ankle and foot (principal); M67.88 Other specified disorders of synovium and tendon, other site | CPT/HCPCS: 99214 ==

== ENCOUNTER 2021-12-31 10:08 | Outpatient (CLI) | payer OTHER, SELFPAY ==
--- NOTE | 2021-12-31 10:00 | MR_ITS ---
WS: [id number] MRI LEFT ANKLE NONCONTRAST TECHNIQUE: Sagittal proton density, sagittal STIR, axial proton density, axial T1, axial T2 fat sat, coronal proton density, coronal proton density fat sat, coronal T2 fat sat. CLINICAL INFORMATION: new injury postoperatively to left Achilles repair COMPARISON: MRI September 09, 2021 FINDINGS: Interval repair of the previously described distal Achilles tear. Insertional anchors involving the A chilles calcaneal insertion. There is diffuse marked fusiform enlargement of the distal tendon with d iffuse heterogeneity. Recurrent interstitial tear with fluid signal extends over approximately 1.8 cm to the distal insertion. Fluid and edema about the tendon sheath. Additional transverse tear involvi ng the mid substance Achilles anteriorly. No other significant changes compared to previous. Normal bone marrow signal in the talus and distal tibial plafond. Normal bone marrow signal today in the cuboid MR/MR ankle LT wo con* [id number] IMPRESSION: 1. Recurrent interstitial tear involving the distal Achilles repair extending over approximately 1.8 cm with fluid filled signal cleft extending to the inser tion. No tendon retraction. 2. Additional fluid-filled mid substance tear in the anterior Achilles 3. Marked diffuse fusiform enlargement of the distal Achilles tendon repair me asuring 1.8 cm AP compatible with tendinopathy. 4. Diffuse edema and fluid about the distal Achilles tendon sheath. 5. No other significant changes compared to previous.
== END 2021-12-31 10:09 | disposition home or self-care (01) ==
PROVIDERS: Visit Provider Podiatrist Foot & Ankle Surgery
DX: M67.88 Other specified disorders of synovium and tendon, other site (principal); Z98.890 Other specified postprocedural states
CPT/HCPCS: 73721

== ENCOUNTER → 2022-01-05 09:31 | Outpatient (BNVA) | payer OTHER, SELFPAY | PROVIDERS: Visit Provider Anesthesiology Pain Medicine | DX: M47.816 Spondylosis without myelopathy or radiculopathy, lumbar region (principal); M51.36 Other intervertebral disc degeneration, lumbar region; M79.604 Pain in right leg; M79.605 Pain in left leg; Z79.891 Long term (current) use of opiate analgesic | CPT/HCPCS: 99205 ==

== ENCOUNTER → 2022-01-19 15:29 | Outpatient (BNVA) | payer OTHER, SELFPAY | PROVIDERS: Visit Provider Podiatrist Foot & Ankle Surgery | DX: M67.88 Other specified disorders of synovium and tendon, other site (principal) | CPT/HCPCS: 99024 ==

== ENCOUNTER → 2022-02-02 13:40 | Outpatient (BNVA) | payer OTHER, SELFPAY | PROVIDERS: Visit Provider Anesthesiology Pain Medicine | DX: M47.816 Spondylosis without myelopathy or radiculopathy, lumbar region (principal); M54.9 Dorsalgia, unspecified; M67.88 Other specified disorders of synovium and tendon, other site | CPT/HCPCS: 64493; 64494; 64495; 99024; J3490 ==

== ENCOUNTER → 2022-02-16 09:32 | Outpatient (BNVA) | payer OTHER, SELFPAY | PROVIDERS: Visit Provider Anesthesiology Pain Medicine | DX: M47.816 Spondylosis without myelopathy or radiculopathy, lumbar region (principal); M51.36 Other intervertebral disc degeneration, lumbar region | CPT/HCPCS: 99214 ==

== ENCOUNTER → 2022-03-08 13:02 | Outpatient (BNVA) | payer OTHER, SELFPAY | PROVIDERS: Visit Provider Podiatrist Foot & Ankle Surgery | DX: M67.88 Other specified disorders of synovium and tendon, other site (principal) | CPT/HCPCS: 99024 ==

== ENCOUNTER 2022-03-10 17:20 | Outpatient (CLI) | payer OTHER, SELFPAY ==
--- NOTE | 2022-03-10 17:00 | MR_ITS ---
WS: [id number] MRI LEFT FOOT without CONTRAST. COMPARISON: 12/31/2021 Multiplanar, multisequence imaging is performed without contrast. This examination is targeted to the hindfoot with attention to the Achilles tendon. Distal Achilles tendon tear has been repaired with bone insertional anchors. No change in position of the anchor since 12/31/2021. Small amount of edema and increased T2 signal is reidentified in the pos terior calcaneus. The edema and increased T2 signal surrounding the Achilles tendon and within the tendon has improved since 12/31/2021. There is still thickening of the tendon but the previously described insertional sit e tear is improving. There is increasing healing and fibrotic tissue with no retraction of the tendon and no atrophy. There is no fluid gap. No significant joint effusion or retrocalcaneal bursitis. MR/MR foot LT wo con* [id number] IMPRESSION: 1. Status post anchor repair Achilles tendon injury. 2. Compared to the 12/31/2021 study there has been an overall improvement in th e amount of edema and the interstitial tear within the distal Achilles tendon. The interstitial tear previously described is not identified. There is thickeni ng of the tendon consistent with healing and fibrosis but there is no fluid gap . Overall no adverse change. Slow improvement suspected. 3. Persistent Achilles tendon thickening distally. No focal new tear identifie d.
== END 2022-03-10 17:21 | disposition home or self-care (01) ==
LOC: RAD 17:28
PROVIDERS: Visit Provider Podiatrist Foot & Ankle Surgery
DX: M25.572 Pain in left ankle and joints of left foot (principal); M79.672 Pain in left foot
CPT/HCPCS: 73718

== ENCOUNTER → 2022-03-14 11:28 | Outpatient (BNVA) | payer OTHER, SELFPAY | PROVIDERS: Visit Provider Podiatrist Foot & Ankle Surgery | DX: M25.572 Pain in left ankle and joints of left foot (principal); M67.88 Other specified disorders of synovium and tendon, other site | CPT/HCPCS: 99024 ==

== ENCOUNTER → 2022-03-17 13:06 | Outpatient (BNVA) | payer OTHER, SELFPAY | PROVIDERS: Visit Provider Anesthesiology Pain Medicine | DX: M47.816 Spondylosis without myelopathy or radiculopathy, lumbar region (principal) | CPT/HCPCS: 64635; 64636; J1030 ==

== ENCOUNTER → 2022-03-30 09:48 | Outpatient (BNVA) | payer OTHER, SELFPAY | PROVIDERS: Visit Provider Anesthesiology Pain Medicine | DX: M47.816 Spondylosis without myelopathy or radiculopathy, lumbar region (principal); M51.36 Other intervertebral disc degeneration, lumbar region; M79.604 Pain in right leg; M79.605 Pain in left leg | CPT/HCPCS: 99214 ==

== ENCOUNTER → 2022-04-07 09:07 | Outpatient (BNVA) | payer OTHER, SELFPAY | PROVIDERS: Visit Provider Orthopaedic Surgery | DX: M50.322 Other cervical disc degeneration at C5-C6 level (principal); M47.22 Other spondylosis with radiculopathy, cervical region; M54.50 Low back pain, unspecified | CPT/HCPCS: 72050; 99203; 99204 ==

== ENCOUNTER 2022-04-19 14:50 | Outpatient (CLI) | payer OTHER, SELFPAY ==
--- NOTE | 2022-04-19 15:20 | MM_ITS ---
WS: [email or web address] BILATERAL 3D TOMOSYNTHESIS DIGITAL SCREENING MAMMOGRAPHY WITH CAD CLINICAL INFORMATION: SCREENING HISTORY: Screening mammogram. Bilateral breast soreness COMPARISON: None. TECHNIQUE: Bilateral CC and MLO views. FINDINGS: Scattered fibroglandular densities bilaterally. No suspicious focal mass, asymmetry, calcifications, or architectural distortion. No evidence of malignancy. Lucent centered calcifications. MM/[place] [id number] IMPRESSION: BI-RADS: 2-Benign FOLLOW UP: 1 Year Follow-up Recommend return to annual screening mammography.
== END 2022-04-19 14:51 | disposition home or self-care (01) ==
PROVIDERS: PCP Nurse Practitioner; Visit Provider Nurse Practitioner
DX: Z12.31 Encounter for screening mammogram for malignant neoplasm of breast (principal)
CPT/HCPCS: 77063; 77067

== ENCOUNTER 2022-04-26 07:29 | Outpatient (CLI) | payer OTHER, SELFPAY ==
--- NOTE | 2022-04-26 08:00 | MR_ITS ---
WS: [email or web address] MRI CERVICAL SPINE NONCONTRAST TECHNIQUE: Sagittal T1, T2 and STIR imaging. Axial T2, gradient, and fiesta imaging. CLINICAL INFORMATION: pain COMPARISON: None. FINDINGS: Straightening with reversal normal cervical lordosis. Disc osteophyte complex worse at C5-C6 with sli ght contact of the cervical cord. Cord signal is normal. C2-C3: Mild facet arthropathy. Mild LEFT and no significant RIGHT foraminal narrowing. Spinal canal i s patent. C3-C4: Tiny shallow central protrusion. Mild/moderate facet arthropathy. Mild LEFT and no significant RIGHT foraminal narrowing. Spinal canal is patent. C4-C5: No significant disc bulging. Moderate facet arthropathy. Mild RIGHT and no significant LEFT fo raminal narrowing. Spinal canal is patent. C5-C6: Disc osteophyte complex with endplate ridging. Mild to moderate facet arthropathy. Slight cont act of the cervical cord with mild central canal stenosis. Mild RIGHT and no significant LEFT foramin al narrowing. C6-C7: Disc osteophyte complex with endplate ridging. Moderate LEFT and mild RIGHT foraminal narrowin g. Spinal canal is patent. Mild facet arthropathy. C7-T1: Mild LEFT and no significant RIGHT foraminal narrowing. Spinal canal is patent. Mild facet art hropathy. Visualized brain stem structures: Normal. Prevertebral soft tissues: Normal. MR/MR cervical spin wo con* [id number] IMPRESSION: 1. Straightening with slight reversal normal cervical lordosis. 2. Disc osteophyte complex C5-C6 with slight indentation on cervical cord and mild central canal stenosis. 3. Mild RIGHT C5-C6 and moderate LEFT C6-C7 bony foraminal narrowing. Mild LEF T C7-T1 bony foraminal narrowing. 4. Mild to moderate facet arthropathy C3-C4 C4-C5 C5-C6 and C6-C7.
== END 2022-04-26 07:30 | disposition home or self-care (01) ==
PROVIDERS: PCP Nurse Practitioner; Visit Provider Orthopaedic Surgery
DX: M48.02 Spinal stenosis, cervical region (principal); M25.78 Osteophyte, vertebrae; M47.812 Spondylosis without myelopathy or radiculopathy, cervical region; M47.22 Other spondylosis with radiculopathy, cervical region
CPT/HCPCS: 72141; 99214

== ENCOUNTER → 2022-05-24 09:50 | Outpatient (BNVA) | payer OTHER, SELFPAY | PROVIDERS: PCP Nurse Practitioner; Visit Provider Anesthesiology Pain Medicine | DX: M47.22 Other spondylosis with radiculopathy, cervical region (principal); M47.812 Spondylosis without myelopathy or radiculopathy, cervical region; M67.88 Other specified disorders of synovium and tendon, other site; M72.2 Plantar fascial fibromatosis | CPT/HCPCS: 99214 ==

== ENCOUNTER 2022-06-08 20:17 | Emergency (ER) | payer OTHER, SELFPAY ==
[2022-06-08 20:24] VITALS: BP 145/85; PULSE 97; RESP 18; TEMP 36.6; O2SAT 95; BMI 36.3
[2022-06-08 21:00] VITALS: BP 141/90; PULSE 95; RESP 15; O2SAT 95
--- NOTE | 2022-06-08 21:02 | W.ED.DIZZY ---
HPI - Dizziness General: Chief Complaint: Dizziness Stated Complaint: dizziness Time Seen by Provider: 06/08/22 20:34 Source: patient Mode of arrival: ambulatory Limitations: no limitations History of Present Illness: HPI Narrative: This pleasant lady comes to the emergency department because she is having occasional episodes of vertigo since yesterday. He states this is similar to recurrent she had some time ago. She states she gets sensation of spinning when she changes position or raises up quickly. She states it lasts for a number of seconds and then gradually fades away. She denies any associated headache, weakness, numbness. She denies any hearing changes, tinnitus etc. She is not any recent URI symptoms etc. She has some cervical bulging disc that she showed me a picture of her MRI and states that she was at physical therapy yesterday getting massage therapy without any manipulation. She states that when the physical therapist was massaging her she had her head a supported position that was below her shoulders at the edge of the massage table. She says at no time was there any violent manipulation jerking twisting etc. of her head and neck. She states when she first laid back she had a very brief episode and then afterwards after the massage she had a more prolonged episode. He has some mild nausea when the episodes initially occurred but none this suresh just as quickly as the episodes of vertigo. No visual changes or other focal neurologic symptoms. No recent head trauma, fevers chills or other illness. MD elicited complaint: vertigo Timing: episodic Severity: mild Exacerbating factors: change in body position Relieving factors: remaining still Associated symptoms: Reports no associated symptoms; Denies change in hearing, chest pain, chills, headache(s), nasal congestion, palpitations, syncope, tinnitus or vomiting Associated neuro symptoms: Reports no associated symptoms; Deny numbness in extremities Review of Systems Const: Denies: fever(s) or chills Eyes: Denies: change in vision or blurry vision ENMT: Denies: throat pain, odynophagia, change in hearing, tinnitus, nasal discharge, nasal congestion or nasal obstruction Card: Denies: chest pain, palpitations, syncope or pre-syncope Resp: Denies: dyspnea, productive cough or non-productive cough GI: Denies: abdominal pain, vomiting or diarrhea : Denies: flank pain, difficulty voiding, dysuria or urinary frequency Musc: Reports: neck pain; Denies: back pain, extremity pain or extremity swelling Skin/Breast: Denies: rash Neuro: Reports: vertigo; Denies: headache(s), numbness in extremities, weakness in extremities, sensory changes, lack of coordination, difficulty walking, Slurred speech present or involuntary movements Psych: Denies: anxiety or depression PFSH ED PFSH: Medical History No pertinent family history Surgical History No pertinent past surgical history S/P foot surgery, right Social History Smoking and tobacco status: never smoked Second hand smoke exposure: Yes Alcohol intake: former Desire information about alcohol rehabilitation?: No Desire information about substance/drug rehabilitation?: No History of recent travel: Yes ([place]) Out of state: Yes Physical Exam Narrative: EXAM NARRATIVE: She is alert makes good eye contact and appears to be calm and comfortable. Beach is goal-directed. Const: COMMON NORMALS: no acute distress, patient oriented x3, healthy appearing and alert GENERAL APPEARANCE: cooperative and comfortable NUTRITIONAL APPEARANCE: overweight HENMT: COMMON NORMALS: normocephalic, atraumatic, EAC's normal, TM's normal bilaterally, Normal nasal mucous membranes and turbinates present, moist oral mucous membranes and oropharynx normal HEAD & SCALP: normocephalic and atraumatic; no scalp tenderness and no Temporal artery tenderness present FACE & SINUS: normal facial exam and face symmetric NOSE: Normal nasal mucous membranes and turbinates present EXTERNAL AUDITORY CANAL: EAC's normal TYMPANIC MEMBRANE: TM's normal bilaterally Eye: COMMON NORMALS: Equal, round and reactive pupils present, EOMs intact bilaterally (No nystagmus at rest.) and conjunctivae normal CONJUNCTIVA: Yes conjunctivae normal PUPIL: Yes Equal, round and reactive pupils present Neck/C-Spine: COMMON NORMALS: full ROM, no JVD and No carotid bruits CERVICAL SPINE: Yes cervical ROM normal, No Cervical spine tenderness, No step off deformity and Yes Paracervical muscle tenderness (Mild left posterior cervical muscle tenderness. Some exacerbation with hea) left Lymph: LYMPHATIC: no lymphadenopathy noted Resp: COMMON NORMALS: normal respiratory effort and clear to auscultation bilaterally EFFORT & INSPECTION: Yes able to speak in complete sentences AUSCULTATION: clear to auscultation bilaterally Cardio: COMMON NORMALS: no JVD, regular rate, regular rhythm and No murmurs present (Cardio) RATE: regular rate RHYTHM: regular rhythm GI: COMMON NORMALS: Soft to palpation and non-tender PALPATION: Yes Soft to palpation : COMMON NORMALS: Yes no CVA tenderness BLADDER/KIDNEY EXAM: Yes no CVA tenderness Back/Pelvis: COMMON NORMALS: no CVA tenderness, thoracic and lumbar spine normal to inspection, no thoracic nor lumbar tenderness, thoraco-lumbar ROM normal and straight leg raise negative bilaterally Extremity: COMMON NORMALS: normal to inspection, full ROM, no calf tenderness and no pedal edema Neuro: COMMON NORMALS: patient oriented x3, moves all extremities, no sensory deficits noted and gait normal SENSORIUM/ORIENTATION: Yes alert COORDINATION/BALANCE: [id number] test normal and ircy-[id number] test normal GAIT: Yes Normal gait present COORDINATION: [id number] test normal and [id number]-[id number] test normal OTHER: Oakwood-Hallpike maneuver was performed. With head turn right her symptoms were reproduced in a supine position as well as with additional positional changes. They quickly fatigue within less than 20 seconds. No nystagmus was observed at rest. Skin: COMMON NORMALS: no rashes or lesions noted GENERAL SKIN EXAM: no rashes or lesions noted Course Vital Signs: Vital signs: Vital Signs Temperature 97.8 F 06/08/22 20:24 Pulse Rate 95 06/08/22 21:00 Respiratory Rate 15 06/08/22 21:00 Blood Pressure 141/90 06/08/22 21:00 Pulse Oximetry 95 06/08/22 21:00 Oxygen Delivery Me thod 06/08/22 21:00 MDM - Dizziness Medical Decision Making Patient presents with what appears to be benign positional vertigo. She has no other associated symptoms other than transient vertigo with head movement. There is no issues with associated neurologic symptoms and/or findings and no other contributory factor that would suggest a more serious etiology to her vertigo. She did not receive any violent cervical manipulation etc. just gentle cervical massage according to the patient and her symptoms began with her head lying back below the level of her shoulders yesterday. We discussed the most likely etiology and the very extremely unlikely potential for vertebral artery dissection or other vascular issue. Before sending standing our discussion and I do not feel that advanced imaging or other investigation is warranted at this time given her clinical presentation which she acknowledged and appreciated. She has had similar symptoms in the past and responded well to meclizine and this is current preferred treatment based on most recent literature. We will begin on meclizine with return precautions detailed such as associated headache, gait disturbance, other neurologic symptoms should prompt her to return to this or the nearest emergency department immediately for further evaluation. She voiced understanding and was appreciative of care. Medical Records I reviewed the patient's medical records. Discharge Plan Discharge Patient Disposition: Home Clinical Impression: Acute vestibular syndrome, Benign paroxysmal positional vertigo Condition: Stable Prescriptions: New meclizine 25 mg tablet 25 mg PO TID PRN (Reason: vertigo) Qty: 30 0RF No Action propranolol 160 mg capsule,extended release 24 hr 160 mg PO DAILY albuterol sulfate 90 mcg/actuation HFA aerosol inhaler 2 puff inhalation Q6H PRN (Reason: Wheezing) acetaminophen 325 mg capsule 325 mg PO QID PRN (Reason: Pain) cetirizine 10 mg tablet 10 mg PO DAILY fluticasone propionate 50 mcg/actuation spray,suspension 1 spray intranasal DAILY Rx Instructions: administer into each nostril loratadine 10 mg capsule 10 mg PO DAILY olopatadine 0.1 % drops 1 drp ophthalmic (eye) BID Rx Instructions: separate doses by at least 6-8 hours (DME) Custom Molded Orthotics with metatarsal pad See Rx Instructions .Route .MEDSUPPLY Qty: 1 0RF Rx Instructions: As directed by [facility] (DME) Custom open back shoes See Rx Instructions .Route .MEDSUPPLY Qty: 1 0RF Rx Instructions: As directed bupivacaine (PF) 0.25 % (2.5 mg/mL) solution 1 ml Infiltration ONCE Qty: 1 0RF methylprednisolone acetate [Depo-Medrol] 40 mg/mL suspension 40 mg Infiltration ONCE Qty: 1 0RF ascorbic acid (vitamin C) 1,000 mg tablet 1,000 mg PO DAILY 30 Days Qty: 30 2RF diclofenac sodium 50 mg tablet,delayed release (DR/EC) 50 mg PO BID Qty: 60 0RF tramadol 50 mg tablet 50 mg PO TID PRN famotidine 20 mg tablet 20 mg PO BID lidocaine 5 % adhesive patch,medicated 2 patch topical DAILY Rx Instructions: leave on most painful area for up to 12 hrs sumatriptan succinate 50 mg tablet See Rx Instructions PO .COMPLEX Rx Instructions: take 1 tab at onset of headache; if no relief may repeat 1 tab after at least 2 hrs; max = 4 tabs/24 hr PO venlafaxine 75 mg tablet 150 mg PO DAILY (DME) SALVIA ORAL SPTRAY spray 0 .Route .MEDSUPPLY Menthoderm 15-10 % ointment topical PRN ammonium lactate 12 % lotion 1 applic topical DAILY Qty: 400 6RF (DME) Incorporate Ultrasound and iontophoresis Therapy to the left Plantar Fascia See Rx Instructions .Route .MEDSUPPLY Qty: 1 0RF Rx Instructions: As directed by Physical Therapy Specialist (DME) Cervical Traction Device See Rx Instructions .Route .MEDSUPPLY Qty: 1 0RF Rx Instructions: As directed gabapentin 300 mg capsule 300 mg PO TID Qty: 90 0RF (DME) Custom Molded Low profile insoles with YASMIN metatarsal pad and Closed back Orthopedic Shoes See Rx Instructions .Route .MEDSUPPLY Qty: 1 0RF Rx Instructions: As directed J P [facility] O diazepam [Valium] 5 mg tablet 5 mg PO ONCE 7 Days Qty: 2 0RF (DME) 3 Pairs of Compression Socks See Rx Instructions .Route .MEDSUPPLY Qty: 1 0RF Rx Instructions: As directed benzonatate [Tessalon Perles] 100 mg capsule 100 mg PO TID PRN (Reason: cough) Qty: 14 0RF Discharge Orders: Discharge ED (Routine); Ordered 06/08/22 Ordered By: Keith Seay Referrals: Alma Herndon, [employer] [Primary Care Provider] - Discharge Diet: Usual diet Discharge Activity: Increase activity as tolerated Patient Instructions: Benign Paroxysmal Positional Vertigo (ED), Opioid Safety, Pain Management Activity Restrictions/Additional Instructions: As we discussed all your findings and history suggest this is a benign positional vertigo. We have prescribed meclizine to help with your symptoms. If you develop associated headache, difficulty walking, numbness, difficulty with speech or any other concerning or persistent symptoms return to this or the nearest emergency department immediately. Coding Level of Care Code ED Scenario Writer for [employer] Foster
[2022-06-08] MEDS: meclizine 25 mg tablet PO (21:15)
[2022-06-08] MEDS: meclizine 25 mg tablet 75 MG PO (21:30)
== END 2022-06-08 21:31 | disposition home or self-care (01) ==
PROVIDERS: Emergency Provider Emergency Medicine; PCP Nurse Practitioner
DX: H81.90 Unspecified disorder of vestibular function, unspecified ear (principal); H81.10 Benign paroxysmal vertigo, unspecified ear; Z77.22 Contact with and (suspected) exposure to environmental tobacco smoke (acute) (chronic)
CPT/HCPCS: 99283; J8597

== ENCOUNTER → 2022-07-05 13:00 | Outpatient (BNVA) | payer OTHER, SELFPAY | PROVIDERS: PCP Nurse Practitioner; Visit Provider Podiatrist Foot & Ankle Surgery | DX: M67.88 Other specified disorders of synovium and tendon, other site (principal) | CPT/HCPCS: 99213 ==

== ENCOUNTER 2022-08-20 12:42 | Emergency (ER) | payer OTHER, SELFPAY ==
[2022-08-20 12:43] VITALS: BP 130/88; PULSE 84; RESP 16; TEMP 36.7; O2SAT 95
--- NOTE | 2022-08-20 12:48 | ED_ITS ---
HPI - SOB/Dyspnea General: Chief Complaint: Shortness of Breath/Dyspnea Stated Complaint: sob Time Seen by Provider: 08/20/22 12:45 History of Present Illness: HPI Narrative: Ms. Angel is a 56-year-old lady with history of asthma presenting to the emergency department for cough and shortness of breath. She reports onset of symptoms approximately 1 week ago. Onset was gradual and intermittently productive with burning feeling that she describes as burning in her bronchioles. Mild associated generalized malaise, no other signs systemic illness. Patient was given a Z-Darrius on Monday however no steroids and has not significantly improved. Additionally she has an albuterol inhaler however it is . No other specific changes in health, exacerbating, or alleviating factors identified. Onset (ago): day(s) Timing: progressively worsening Severity: moderate Exacerbating factors: exertion and coughing Relieving factors: nothing Known history of: asthma Associated symptoms: Reports chest congestion, chest pain, cough and other Review of Systems General: Reports: 10 or more systems reviewed and unremarkable except in HPI and below Card: Reports: chest pain Resp: Reports: chest congestion PFSH ED PFSH: Medical History No pertinent family history Surgical History No pertinent past surgical history S/P foot surgery, right Social History Smoking and tobacco status: never smoked Second hand smoke exposure: Yes Alcohol intake: former Desire information about alcohol rehabilitation?: No Desire information about substance/drug rehabilitation?: No Physical Exam Const: COMMON NORMALS: alert GENERAL APPEARANCE: cooperative and well developed HENMT: COMMON NORMALS: normocephalic and atraumatic HEAD & SCALP: normocephalic and atraumatic THROAT: posterior oropharynx normal Eye: COMMON NORMALS: conjunctivae normal CONJUNCTIVA: Yes conjunctivae normal SCLERA: sclerae normal Neck/C-Spine: COMMON NORMALS: supple GENERAL: Yes trachea midline Resp: EFFORT & INSPECTION: Yes able to speak in complete sentences AUSCULTATION: diminished lung sounds Cardio: COMMON NORMALS: regular rate and regular rhythm RATE: regular rate RHYTHM: regular rhythm GI: COMMON NORMALS: Soft to palpation PALPATION: Yes Soft to palpation and No Tenderness to palpation present (GI) Extremity: GENERAL: Yes normal exam except as noted and No edema Neuro: COMMON NORMALS: moves all extremities SENSORIUM/ORIENTATION: Yes alert and No Orientation impaired Psych: COMMON NORMALS: mental status grossly normal and Normal thought process present THOUGHT PROCESS: Normal thought process present Course Vital Signs: Vital signs: Vital Signs Temperature 98.0 F 08/20/22 12:43 Pulse Rate 96 08/20/22 13:49 Respiratory Rate 18 08/20/22 13:49 Blood Pressure 131/88 08/20/22 13:49 Pulse Oximetry 100 08/20/22 13:49 Oxygen Delivery Me thod 08/20/22 13:18 MDM - SOB/Dyspnea Medical Decision Making 56-year-old lady presenting with shortness of breath and continued dyspnea symptoms for 1 week despite outpatient treatment. Exam as above. Patient is nontoxic. Chest x-ray negative for lobar consolidation or pneumothorax. Patient treated with steroids and DuoNeb with significant improvement. Given marked improvement patient feels comfortable with continued outpatient management. I will prescribe additional treatments. Most likely etiology of patient's symptoms is exacerbation of underlying lung condition. The results of ED evaluation were discussed with the patient including prescriptions and/or symptomatic cares (if applicable) including appropriate and responsible use, followup plan, and return precautions. The patient verbalized u nderstanding and felt safe for discharge. Medical Records I reviewed the patient's medical records. Lab Data I reviewed the patient's lab results. Labs/Radiology: Radiology Impressions Chest X-Ray 08/20/22 13:03 IMPRESSION: No acute findings. Discharge Plan Discharge Patient Disposition: Home Clinical Impression: Bronchitis, Asthma with exacerbation Condition: Stable Prescriptions: New albuterol sulfate 90 mcg/actuation HFA aerosol inhaler 2 inh inhalation Q4H PRN (Reason: shortness of breath or wheezing) Qty: 8.5 0RF No Action propranolol 160 mg capsule,extended release 24 hr 160 mg PO DAILY albuterol sulfate 90 mcg/actuation HFA aerosol inhaler 2 puff inhalation Q6H PRN (Reason: Wheezing) acetaminophen 325 mg capsule 325 mg PO QID PRN (Reason: Pain) cetirizine 10 mg tablet 10 mg PO DAILY fluticasone propionate 50 mcg/actuation spray,suspension 1 spray intranasal DAILY Rx Instructions: administer into each nostril loratadine 10 mg capsule 10 mg PO DAILY olopatadine 0.1 % drops 1 drp ophthalmic (eye) BID Rx Instructions: separate doses by at least 6-8 hours (DME) Custom Molded Orthotics with metatarsal pad See Rx Instructions .Route .MEDSUPPLY Qty: 1 0RF Rx Instructions: As directed by [facility] (DME) Custom open back shoes See Rx Instructions .Route .MEDSUPPLY Qty: 1 0RF Rx Instructions: As directed bupivacaine (PF) 0.25 % (2.5 mg/mL) solution 1 ml Infiltration ONCE Qty: 1 0RF methylprednisolone acetate [Depo-Medrol] 40 mg/mL suspension 40 mg Infiltration ONCE Qty: 1 0RF ascorbic acid (vitamin C) 1,000 mg tablet 1,000 mg PO DAILY 30 Days Qty: 30 2RF diclofenac sodium 50 mg tablet,delayed release (DR/EC) 50 mg PO BID Qty: 60 0RF tramadol 50 mg tablet 50 mg PO TID PRN famotidine 20 mg tablet 20 mg PO BID lidocaine 5 % adhesive patch,medicated 2 patch topical DAILY Rx Instructions: leave on most painful area for up to 12 hrs sumatriptan succinate 50 mg tablet See Rx Instructions PO .COMPLEX Rx Instructions: take 1 tab at onset of headache; if no relief may repeat 1 tab after at least 2 hrs; max = 4 tabs/24 hr PO venlafaxine 75 mg tablet 150 mg PO DAILY (DME) SALVIA ORAL SPTRAY spray 0 .Route .MEDSUPPLY Menthoderm 15-10 % ointment topical PRN ammonium lactate 12 % lotion 1 applic topical DAILY Qty: 400 6RF (DME) Incorporate Ultrasound and iontophoresis Therapy to the left Plantar Fascia See Rx Instructions .Route .MEDSUPPLY Qty: 1 0RF Rx Instructions: As directed by Physical Therapy Specialist (DME) Cervical Traction Device See Rx Instructions .Route .MEDSUPPLY Qty: 1 0RF Rx Instructions: As directed gabapentin 300 mg capsule 300 mg PO TID Qty: 90 0RF (DME) 3 Pairs of Compression Socks See Rx Instructions .Route .MEDSUPPLY Qty: 1 0RF Rx Instructions: As directed (DME) Custom Molded Low profile insoles with YASMIN metatarsal pad and Closed back Orthopedic Shoes See Rx Instructions .Route .MEDSUPPLY Qty: 1 0RF Rx Instructions: As directed J P [facility] O diazepam [Valium] 5 mg tablet 5 mg PO ONCE 7 Days Qty: 2 0RF benzonatate [Tessalon Perles] 100 mg capsule 100 mg PO TID PRN (Reason: cough) Qty: 14 0RF meclizine 25 mg tablet 25 mg PO TID PRN (Reason: vertigo) Qty: 30 0RF Discharge Orders: Discharge ED (Routine); Ordered 08/20/22 Ordered By: Oleg Vigil Referrals: Alma Herndon FNP [Primary Care Provider] - Discharge Diet: Usual diet Discharge Activity: Increase activity as tolerated Patient Instructions: Acute Bronchitis (ED) Activity Restrictions/Additional Instructions: Thank you for visiting the emergency department. You were seen and evaluated for respiratory symptoms. The exact cause your symptoms is unclear though likely bronchitis with mild exacerbation of underlying airway disease. I believe that it is safe to manage this in the outpatient setting. I will prescribe steroids and antibiotics. Please also use your albuterol metered-dose inhaler 2 puffs every 4 hours for 24 hours followed by 2 puffs every 6 hours for 24 hours followed by 2 puffs every 8 hours for 24 hours and then return to the normal schedule. Please follow-up with a primary care provider. Return to the emergency department for uncontrolled symptoms or anything else that you are concerned about and feel needs emergency department evaluation. Coding Level of Care Code ED Media Services Director for Gal Foster
--- NOTE | 2022-08-20 13:03 | XRR_ITS ---
PROCEDURE INFORMATION: Exam: XR Chest Exam date and time: 08/20/2022 1:07 PM Age: 56 years old Clinical indication: Cough TECHNIQUE: Imaging protocol: Radiologic exam of the chest. Views: 1 view. COMPARISON: CR XR chest 1V portable [id number] 06/07/2021 5:34 PM FINDINGS: Lungs: Unremarkable. No consolidation. Pleural spaces: Unremarkable. No pleural effusion. No pneumothorax. Heart/Mediastinum: Unremarkable. No cardiomegaly. Bones/joints: Unremarkable. XR/XR chest 1V portable [id number] IMPRESSION: No acute findings.
[2022-08-20] MEDS: ipratropium-albuterol 3 mL Neb INHALATION (13:15)
[2022-08-20 13:18] VITALS: PULSE 91; RESP 18; O2SAT 98
[2022-08-20 13:22] VITALS: PULSE 86
[2022-08-20] MEDS: predniSONE 20 mg Tablet 60 MG PO (13:28)
[2022-08-20 13:49] VITALS: BP 131/88; PULSE 96; RESP 18; O2SAT 100
== END 2022-08-20 13:50 | disposition home or self-care (01) ==
PROVIDERS: Emergency Provider Emergency Medicine; PCP Nurse Practitioner
DX: J40 Bronchitis, not specified as acute or chronic (principal); J45.901 Unspecified asthma with (acute) exacerbation
CPT/HCPCS: 71045; 94640; 99283; J7512

== ENCOUNTER 2022-09-17 06:00 | Outpatient (RCR) | payer OTHER, SELFPAY | END 2022-10-16 23:59 | disposition home or self-care (01) | LOC: SPT 06:00 | PROVIDERS: PCP Nurse Practitioner; Visit Provider Nurse Practitioner | DX: N39.3 Stress incontinence (female) (male) (principal) | CPT/HCPCS: 97110; 97161; 97530 ==

== ENCOUNTER 2022-10-05 12:47 | Emergency (ER) | payer OTHER, SELFPAY ==
[2022-10-05 13:07] VITALS: BP 119/86; PULSE 82; TEMP 36.7; O2SAT 96; BMI 33.0
[2022-10-05 14:22] LABS: Basophils % 0.3 %; Eosinophils # 0.1 10^3/uL (0.0-0.8); Eosinophils % 1.9 %; Hematocrit 43.7 % (37.0-47.0); Hemoglobin 14.2 g/dL (11.5-15.3); Lymphocytes % 31.7 %; Mean Corpuscular HGB Conc 32.5 g/dL (30.0-36.0); Mean Corpuscular Hemoglobin 28.1 pg (28.0-34.0); Mean Corpuscular Volume 86.4 fl (81-99); Mean Platelet Volume 10.6 fL (7.4-10.4); Monocytes # 0.6 10^3/uL (0.2-0.9); Monocytes % 9.4 %; Neutrophils # 3.55 10^3/uL (1.8-7.7); Neutrophils % 56.5 %; Nucleated Red Blood Cells % 0 %; Platelet Count 239 10^3/cmm (130-400); Red Blood Count 5.06 10^6/uL (4.1-5.3); Red Cell Distribution Width 14.4 % (12.1-15.1); White Blood Count 6.3 10^3/uL (4.0-10.0)
--- NOTE | 2022-10-05 14:27 | ED_ITS ---
HPI - Animal Bite General: Chief Complaint: Animal Bite Stated Complaint: tick bite on ear/redness + bump Time Seen by Provider: 10/05/22 13:46 History of Present Illness: Patient is a 57-year-old female comes to the ED with tick bite. Patient noticed tick on left ear approximately 4 days ago and removed it. Since then she has been having increased redness and swelling of her left ear and some lymph node swelling on left side of neck as well. Denies any fevers, body/muscle aches aches or vomiting. Associated symptoms: Deny chills, fever(s) or headache(s) Review of Systems Const: Denies: fever(s), chills or fatigue Eyes: Denies: change in vision or eye discomfort ENMT: Denies: throat pain, odynophagia, nasal discharge or nasal congestion Card: Denies: chest pain, palpitations, edema, swelling of feet/ankles, dyspnea on exertion or orthopnea Resp: Denies: dyspnea, productive cough or non-productive cough GI: Denies: abdominal pain, nausea, vomiting, diarrhea, constipation or hematochezia : Denies: flank pain, dysuria or hematuria Musc: Denies: neck pain, back pain or extremity swelling Skin/Breast: Reports: new lesions (Tick bite to left ear); Denies: rash Neuro: Denies: headache(s), numbness in extremities or weakness in extremities PFS ED PFSH: Medical History No pertinent family history Surgical History No pertinent past surgical history S/P foot surgery, right Social History Smoking and tobacco status: never smoked Second hand smoke exposure: Yes Alcohol intake: former Desire information about alcohol rehabilitation?: No Desire information about substance/drug rehabilitation?: No Physical Exam Const: COMMON NORMALS: patient oriented x3 HENMT: COMMON NORMALS: normocephalic HEAD & SCALP: normocephalic MOUTH: Normal oral and palatal mucosa present THROAT: posterior oropharynx normal and uvula midline OTHER: Left ear?erythema warmth and swelling of the helix of ear. No visible tick is seen embedded in the ear. Neck/C-Spine: COMMON NORMALS: supple GENERAL: Yes normal visual inspection Lymph: LYMPHATIC: lymphadenopathy left anterior cervical soft; not warm and nontender 1 cm Resp: COMMON NORMALS: normal respiratory effort, No retractions, No use of accessory muscles and clear to auscultation bilaterally AUSCULTATION: clear to auscultation bilaterally Cardio: COMMON NORMALS: regular rate, regular rhythm, S1 normal heart sound present, S2 normal heart sound present, No gallops present (Cardio), No clicks present (Cardio), No murmurs present (Cardio) and Peripheral pulses 2+ throughout RATE: regular rate RHYTHM: regular rhythm HEART SOUNDS: S1 normal heart sound present and S2 normal heart sound present PERIPHERAL PULSES: Peripheral pulses 2+ throughout GI: COMMON NORMALS: Normal to inspection, nondistended, normoactive bowel sounds present, Soft to palpation, non-tender and no masses PALPATION: Yes Soft to palpation : COMMON NORMALS: Yes no CVA tenderness BLADDER/KIDNEY EXAM: Yes no CVA tenderness Back/Pelvis: COMMON NORMALS: no CVA tenderness Extremity: COMMON NORMALS: normal to inspection Neuro: COMMON NORMALS: patient oriented x3 GAIT: Yes Normal gait present Skin: GENERAL SKIN EXAM: dry skin Course Vital Signs: Vital signs: Vital Signs Temperature 98.1 F 10/05/22 13:07 Pulse Rate 82 10/05/22 13:07 Blood Pressure 119/86 10/05/22 13:07 Pulse Oximetry 96 10/05/22 13:07 Oxygen Delivery Me thod Room Air 10/05/22 13:07 MDM - Animal Bite Medical Decision Making Patient is a 57-year-old female comes to the ED with tick bite. Patient noticed tick on left ear approximately 4 days ago and removed it. Since then she has be en having increased redness and swelling of her left ear and some lymph node swelling on left side of neck as well. Denies any fevers, body/muscle aches aches or vomiting. Vitals are stable. Left ear?erythema warmth and swelling of the helix of ear. No visible tick is seen embedded in the ear. CBC is unremarkable and tick panel is pending. Patient was diagnosed with tick bite and discharged home on a prescription for doxycycline. Told to follow-up with her PCP in the next several days for reevaluation. She was told to check with her patient portal or to call [facility] to find out tick panel results. Patient understood and agreed with plan. Lab Data I reviewed the patient's lab results. 10/05/22 14:00 Laboratory Results WBC 6.3 10^3/uL (4.0-10.0) 10/05/22 14:00 RBC 5.06 10^6/uL (4.1-5.3) 10/05/22 14:00 Hgb 14.2 g/dL (11.5-15.3) 10/05/22 14:00 Hct 43.7 % (37.0-47.0) 10/05/22 14:00 MCV 86.4 fl (81-99) 10/05/22 14:00 MCH 28.1 pg (28.0-34.0) 10/05/22 14:00 MCHC 32.5 g/dL (30.0-36.0) 10/05/22 14:00 RDW 14.4 % (12.1-15.1) 10/05/22 14:00 Plt Count 239 10^3/cmm (130-400) 10/05/22 14:00 MPV 10.6 fL (7.4-10.4) H 10/05/22 14:00 Neut % (Auto) 56.5 % 10/05/22 14:00 Lymph % (Auto) 31.7 % 10/05/22 14:00 [place] % (Auto) 9.4 % 10/05/22 14:00 Eos % (Auto) 1.9 % 10/05/22 14:00 Baso % (Auto) 0.3 % 10/05/22 14:00 Neut # (Auto) 3.55 10^3/uL (1.8-7.7) 10/05/22 14:00 Lymph # (Auto) 2.0 10^3/uL (0.8-4.8) 10/05/22 14:00 [place] # (Auto) 0.6 10^3/uL (0.2-0.9) 10/05/22 14:00 Eos # (Auto) 0.1 10^3/uL (0.0-0.8) 10/05/22 14:00 Baso # (Auto) 0.0 10^3/uL (0.0-0.1) 10/05/22 14:00 Nucleated RBC % (auto) 0 % 10/05/22 14:00 Nucleated RBCs # 0.0 /100WBC 10/05/22 14:00 Discharge Plan Discharge Patient Disposition: Home Clinical Impression: Tick bite of left ear Qualifiers: Encounter type: initial encounter Qualified Code(s): S00.462A - Insect bite (nonvenomous) of left ear, initial encounter Condition: Stable Prescriptions: New doxycycline hyclate 100 mg capsule 100 mg PO BID 10 Days Qty: 20 0RF No Action propranolol 160 mg capsule,extended release 24 hr 160 mg PO DAILY albuterol sulfate 90 mcg/actuation HFA aerosol inhaler 2 puff inhalation Q6H PRN (Reason: Wheezing) acetaminophen 325 mg capsule 325 mg PO QID PRN (Reason: Pain) cetirizine 10 mg tablet 10 mg PO DAILY fluticasone propionate 50 mcg/actuation spray,suspension 1 spray intranasal DAILY Rx Instructions: administer into each nostril loratadine 10 mg capsule 10 mg PO DAILY olopatadine 0.1 % drops 1 drp ophthalmic (eye) BID Rx Instructions: separate doses by at least 6-8 hours (DME) Custom Molded Orthotics with metatarsal pad See Rx Instructions .Route .MEDSUPPLY Qty: 1 0RF Rx Instructions: As directed by [facility]YS[facility]O (DME) Custom open back shoes See Rx Instructions .Route .MEDSUPPLY Qty: 1 0RF Rx Instructions: As directed bupivacaine (PF) 0.25 % (2.5 mg/mL) solution 1 ml Infiltration ONCE Qty: 1 0RF methylprednisolone acetate [Depo-Medrol] 40 mg/mL suspension 40 mg Infiltration ONCE Qty: 1 0RF ascorbic acid (vitamin C) 1,000 mg tablet 1,000 mg PO DAILY 30 Days Qty: 30 2RF diclofenac sodium 50 mg tablet,delayed release (DR/EC) 50 mg PO BID Qty: 60 0RF tramadol 50 mg tablet 50 mg PO TID PRN famotidine 20 mg tablet 20 mg PO BID lidocaine 5 % adhesive patch,medicated 2 patch topical DAILY Rx Instructions: leave on most painful area for up to 12 hrs sumatriptan succinate 50 mg tablet See Rx Instructions PO .COMPLEX Rx Instructions: take 1 tab at onset of headache; if no relief may repeat 1 tab after at least 2 hrs; max = 4 tabs/24 hr PO venlafaxine 75 mg tablet 150 mg PO DAILY (DME) SALVIA ORAL SPTRAY spray 0 .Route .MEDSUPPLY Menthoderm 15-10 % ointment topical PRN ammonium lactate 12 % lotion 1 applic topical DAILY Qty: 400 6RF (DME) Incorporate Ultrasound and iontophoresis Therapy to the left Plantar Fascia See Rx Instructions .Route .MEDSUPPLY Qty: 1 0RF Rx Instructions: As directed by Physical Therapy Specialist (DME) Cervical Traction Device See Rx Instructions .Route .MEDSUPPLY Qty: 1 0RF Rx Instructions: As directed gabapentin 300 mg capsule 300 mg PO TID Qty: 90 0RF (DME) 3 Pairs of Compression Socks See Rx Instructions .Route .MEDSUPPLY Qty: 1 0RF Rx Instructions: [place] [place] Molded Low profile insoles with YASMIN metatarsal pad and Closed back Orthopedic Shoes See Rx Instructions .Route .MEDSUPPLY Qty: 1 0RF Rx Instructions: As directed [facility] diazepam [Valium] 5 mg tablet 5 mg PO ONCE 7 Days Qty: 2 0RF benzonatate [Tessalon Perles] 100 mg capsule 100 mg PO TID PRN (Reason: cough) Qty: 14 0RF meclizine 25 mg tablet 25 mg PO TID PRN (Reason: vertigo) Qty: 30 0RF albuterol sulfate 90 mcg/actuation HFA aerosol inhaler 2 inh inhalation Q4H PRN (Reason: shortness of breath or wheezing) Qty: 8.5 0RF Discharge Orders: Discharge ED (Routine); Ordered 10/05/22 Ordered By: Rolando Malhotra Referrals: Alma Herndon FNP [Primary Care Provider] - Discharge Diet: Regular Discharge Activity: Increase activity as tolerated Patient Instructions: Tick Bite (ED) Activity Restrictions/Additional Instructions: Follow-up with medical provider as directed in the next 5 to 7 days for reevaluation. Tick panel labs are pending and should be back within the next couple days so you can go to here portal or call [facility] to find out those test results. Take antibiotic as prescribed. Return to the ER or your medical provider if condition worsens. Please read and understand discharge instructions. Thank you for choosing [email or web address] for your healthcare needs today. Please realize this is an emergency room and that we are providing you with a medical screening exam and this may not be complete and all inclusive of all the testing and or work up that you may need to determine your ailment or severity of your illness. It is very important that you follow up as instructed or that you return to the Emergency Department should you have concerns or if your condition changes or worsens in any way. Coding Level of Care Code ED Airline Flight Attendant for Gal Foster
== END 2022-10-05 15:14 | disposition home or self-care (01) ==
PROVIDERS: Emergency Provider Physician Assistant; PCP Nurse Practitioner
DX: S00.462A Insect bite (nonvenomous) of left ear, initial encounter (principal); Z77.22 Contact with and (suspected) exposure to environmental tobacco smoke (acute) (chronic); W57.XXXA Bitten or stung by nonvenomous insect and other nonvenomous arthropods, initial encounter
CPT/HCPCS: 36415; 85025; 99283

== ENCOUNTER 2022-10-17 06:00 | Outpatient (RCR) | payer OTHER, SELFPAY | END 2022-11-08 23:59 | disposition home or self-care (01) | LOC: SPT 06:00 | PROVIDERS: PCP Nurse Practitioner; Visit Provider Nurse Practitioner | DX: N39.3 Stress incontinence (female) (male) (principal) | CPT/HCPCS: 97110 ==

== ENCOUNTER 2023-03-11 16:44 | Emergency (ER) | payer OTHER, SELFPAY ==
[2023-03-11 16:49] VITALS: BP 117/80; PULSE 95; RESP 17; TEMP 36.6; O2SAT 94; BMI 27.6
[2023-03-11 17:35] VITALS: O2SAT 92
[2023-03-11 17:55] LABS: SARS Covid-2 Antigen positive (Negative)
[2023-03-11 18:46] VITALS: BP 112/93; PULSE 82; O2SAT 97
--- NOTE | 2023-03-11 22:06 | W.ED.COVID ---
HPI - COVID General: Chief Complaint: COVID symptoms Stated Complaint: sob, fever Time Seen by Provider: 03/11/23 17:10 Source: patient Mode of arrival: ambulatory Limitations: no limitations History of Present Illness: Patient presents emergency department today for evaluation treatment of concerns for bronchitis. Patient states on Monday evening she began to not feel particularly well but, had some upset stomach and vomiting on Monday. On Monday patient had diarrhea all day. She states since that time she has had cough. Patient states she deals with asthma-like symptoms and has inhalers at home but, with her cough thought she developed bronchitis. No others are similarly ill at home at this time as her has been out of town for about 2 weeks. She was at [employer] recently but is not aware of any known direct ill contacts. COVID Results: SARS-CoV-2 Antigen (Rapid) positive (Negative) H 03/11/23 17:31 Nasal/Oral Coronavirus 2019 PCR Not detected 06/02/21 15:35 Review of Systems General: Reports: 10 or more systems reviewed and unremarkable except in HPI and below PFSH ED PFSH: Medical History No pertinent family history Surgical History No pertinent past surgical history S/P foot surgery, right Social History Smoking and tobacco status: never smoked Second hand smoke exposure: Yes Alcohol intake: former Desire information about alcohol rehabilitation?: No Substance/Drug Use: never Desire information about substance/drug rehabilitation?: No Physical Exam Const: COMMON NORMALS: no acute distress, patient oriented x3 and alert Eye: COMMON NORMALS: Equal, round and reactive pupils present, EOMs intact bilaterally and conjunctivae normal CONJUNCTIVA: Yes conjunctivae normal PUPIL: Yes Equal, round and reactive pupils present Neck/C-Spine: COMMON NORMALS: no JVD Lymph: LYMPHATIC: no lymphadenopathy noted Resp: COMMON NORMALS: normal respiratory effort, No retractions and No use of accessory muscles OTHER: Patient does have a deep cough but is only heard 1 or 2 times during her evaluation. Pulse ox 97% on room air. Cardio: COMMON NORMALS: no JVD and regular rate RATE: regular rate : COMMON NORMALS: Yes no CVA tenderness BLADDER/KIDNEY EXAM: Yes no CVA tenderness Back/Pelvis: COMMON NORMALS: no CVA tenderness, thoracic and lumbar spine normal to inspection and thoraco-lumbar ROM normal Extremity: COMMON NORMALS: normal to inspection, full ROM and no pedal edema Neuro: COMMON NORMALS: patient oriented x3 SENSORIUM/ORIENTATION: Yes alert Skin: COMMON NORMALS: no rashes or lesions noted and turgor normal GENERAL SKIN EXAM: no rashes or lesions noted and turgor normal Course Vital Signs: Vital signs: Vital Signs Temperature 97.9 F 03/11/23 16:49 Pulse Rate 82 03/11/23 18:46 Respiratory Rate 17 03/11/23 16:49 Blood Pressure 112/93 03/11/23 18:46 Pulse Oximetry 97 03/11/23 18:46 Oxygen Delivery Me thod Room Air 03/11/23 17:35 MDM - COVID Medical Decision Making Patient presents to the emergency department today for concerns of bronchitis. However, with her GI symptoms associated around the same time I recommended a COVID test. COVID was positive. Patient shows no signs of respiratory distress and oxygen is in the high 90s percent on room air. She has inhalers at home. Patient is outside the window to take antiviral medication and would still recommend with holding steroid treatment at this time as she shows no signs of distress. We did discuss a follow-up with primary care next week for recheck as COVID-pneumonia can develop. Patient verbalized understanding and agreement to treatment plan. Lab Data Laboratory Results SARS-CoV-2 Ag (Rapid) positive (Negative) H 03/11/23 17:31 SARS-CoV-2 Antigen (Rapid) positive (Negative) H 03/11/23 17:31 Nasal/Oral Coronavirus 2019 PCR Not detected 06/02/21 15:35 No radiology studies performed this visit Discharge Plan Discharge Patient Disposition: Home Clinical Impression: COVID-19 Condition: Stable Prescriptions: No Action propranolol 160 mg capsule,extended release 24 hr 160 mg PO DAILY albuterol sulfate 90 mcg/actuation HFA aerosol inhaler 2 puff inhalation Q6H PRN (Reason: Wheezing) acetaminophen 325 mg capsule 325 mg PO QID PRN (Reason: Pain) cetirizine 10 mg tablet 10 mg PO DAILY fluticasone propionate 50 mcg/actuation spray,suspension 1 spray intranasal DAILY Rx Instructions: administer into each nostril loratadine 10 mg capsule 10 mg PO DAILY olopatadine 0.1 % drops 1 drp ophthalmic (eye) BID Rx Instructions: separate doses by at least 6-8 hours (DME) Custom Molded Orthotics with metatarsal pad See Rx Instructions .Route .MEDSUPPLY Qty: 1 0RF Rx Instructions: As directed by [facility]O (DME) Custom open back shoes See Rx Instructions .Route .MEDSUPPLY Qty: 1 0RF Rx Instructions: As directed bupivacaine (PF) 0.25 % (2.5 mg/mL) solution 1 ml Infiltration ONCE Qty: 1 0RF methylprednisolone acetate [Depo-Medrol] 40 mg/mL suspension 40 mg Infiltration ONCE Qty: 1 0RF ascorbic acid (vitamin C) 1,000 mg tablet 1,000 mg PO DAILY 30 Days Qty: 30 2RF diclofenac sodium 50 mg tablet,delayed release (DR/EC) 50 mg PO BID Qty: 60 0RF tramadol 50 mg tablet 50 mg PO TID PRN famotidine 20 mg tablet 20 mg PO BID lidocaine 5 % adhesive patch,medicated 2 patch topical DAILY Rx Instructions: leave on most painful area for up to 12 hrs sumatriptan succinate 50 mg tablet See Rx Instructions PO .COMPLEX Rx Instructions: take 1 tab at onset of headache; if no relief may repeat 1 tab after at least 2 hrs; max = 4 tabs/24 hr PO venlafaxine 75 mg tablet 150 mg PO DAILY (DME) SALVIA ORAL SPTRAY spray 0 .Route .MEDSUPPLY Menthoderm 15-10 % ointment topical PRN ammonium lactate 12 % lotion 1 applic topical DAILY Qty: 400 6RF (DME) Incorporate Ultrasound and iontophoresis Therapy to the left Plantar Fascia See Rx Instructions .Route .MEDSUPPLY Qty: 1 0RF Rx Instructions: As directed by Physical Therapy Specialist (DME) Cervical Traction Device See Rx Instructions .Route .MEDSUPPLY Qty: 1 0RF Rx Instructions: As directed gabapentin 300 mg capsule 300 mg PO TID Qty: 90 0RF (DME) 3 Pairs of Compression Socks See Rx Instructions .Route .MEDSUPPLY Qty: 1 0RF Rx Instructions: As directed (DME) Custom Molded Low profile insoles with YASMIN metatarsal pad and Closed back Orthopedic Shoes See Rx Instructions .Route .MEDSUPPLY Qty: 1 0RF Rx Instructions: As directed [facility] P [facility] O diazepam [Valium] 5 mg tablet 5 mg PO ONCE 7 Days Qty: 2 0RF benzonatate [Tessalon Perles] 100 mg capsule 100 mg PO TID PRN (Reason: cough) Qty: 14 0RF meclizine 25 mg tablet 25 mg PO TID PRN (Reason: vertigo) Qty: 30 0RF albuterol sulfate 90 mcg/actuation HFA aerosol inhaler 2 inh inhalation Q4H PRN (Reason: shortness of breath or wheezing) Qty: 8.5 0RF Discharge Orders: Discharge ED (Routine); Ordered 03/11/23 Ordered By: Lady Matos Referrals: Alma Herndon FNP [Primary Care Provider] - Discharge Diet: Usual diet Discharge Activity: Increase activity as tolerated Patient Instructions: Droplet Precautions (ED), COVID-19 (Coronavirus Disease 2019) (ED), COVID-19 and Chronic Health Conditions (ED), How to Recover from COVID-19 at Home (ED) Activity Restrictions/Additional Instructions: Your COVID test was positive today. It does correlate with the types of symptoms you are experiencing. Unfortunately, we are starting to see an increase in COVID in the area at this time. Continue to use your inhalers at home. I do recommend a follow-up appoint with your primary care next week as you will be considered outside the window of contagiousness but, would benefit from a reevaluation to make sure you are not developing towards a COVID-pneumonia as it does sound like you are a high risk category given your chronic pulmonary issues. Continue to use [id number] cough and cold medications for symptom relief. If for any reason you have acute worsening of breathing with increased effort of respiration or signs of respiratory distress we recommend coming to the emergency department immediately. Coding Level of Care Code ED Supervisor Microfilm Duplicating Unit for Gal Foster
== END 2023-03-11 18:50 | disposition home or self-care (01) ==
PROVIDERS: Emergency Provider Physician Assistant; PCP Nurse Practitioner
DX: U07.1 COVID-19 (principal); Z77.22 Contact with and (suspected) exposure to environmental tobacco smoke (acute) (chronic)
CPT/HCPCS: 87426; 99283

== ENCOUNTER 2023-06-02 10:00 | Outpatient (CLI) | payer OTHER, SELFPAY ==
--- NOTE | 2023-06-02 10:14 | MM_ITS ---
WS: [id number] Bilateral screening 3D tomosynthesis digital mammogram, 06/02/2023 Clinical Data: SCREENING Comparison: 04/19/2022, 01/27/2021, 01/20/2020. Findings: The breast parenchymal pattern shows fibroglandular tissue. No spiculated masses or clustered calcifi cations are seen. There are no secondary signs of carcinoma. Impression: 1. Negative bilateral mammogram unchanged. 2. Recommend annual screening mammograms. MM/[place] [id number] BIRADS: 1-Negative FOLLOW UP: 1 Year Follow-up The CAD raspberry checker was used.
== END 2023-06-02 10:01 | disposition home or self-care (01) ==
LOC: RAD 10:00
PROVIDERS: PCP Nurse Practitioner; Visit Provider Nurse Practitioner
DX: Z12.31 Encounter for screening mammogram for malignant neoplasm of breast (principal)
CPT/HCPCS: 77063; 77067

== ENCOUNTER 2023-06-22 05:22 | Emergency (ER) | payer OTHER, SELFPAY ==
[2023-06-22 05:33] VITALS: BP 136/91; PULSE 75; RESP 18; TEMP 36.6; O2SAT 97; BMI 27.4
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
[2023-06-22] MEDS: silver sulfadiazine cream 1% 50 gm 1 APPLIC TOPICAL (06:05)
--- NOTE | 2023-06-22 06:05 | PC.NURSE ---
pts hand was wrapped in telfa and secured with kerlix.
== END 2023-06-22 06:06 | disposition home or self-care (01) ==
PROVIDERS: Emergency Provider Emergency Medicine; PCP Nurse Practitioner
DX: T23.261A Burn of second degree of back of right hand, initial encounter (principal); T23.241A Burn of second degree of multiple right fingers (nail), including thumb, initial encounter; X02.8XXA Other exposure to controlled fire in building or structure, initial encounter; Z77.22 Contact with and (suspected) exposure to environmental tobacco smoke (acute) (chronic)
CPT/HCPCS: 99283

== ENCOUNTER → 2024-01-04 10:16 | Outpatient (BNVA) | payer OTHER, SELFPAY | PROVIDERS: PCP Nurse Practitioner; Visit Provider Orthopaedic Surgery | DX: M47.816 Spondylosis without myelopathy or radiculopathy, lumbar region (principal); M54.50 Low back pain, unspecified; G89.29 Other chronic pain; M54.2 Cervicalgia; M54.6 Pain in thoracic spine | CPT/HCPCS: 72050; 72072; 72110; 99214 ==

== ENCOUNTER → 2024-01-11 08:23 | Outpatient (BNVA) | payer OTHER, SELFPAY | PROVIDERS: PCP Nurse Practitioner; Visit Provider Podiatrist Foot & Ankle Surgery | DX: M79.671 Pain in right foot (principal); M79.672 Pain in left foot; M72.2 Plantar fascial fibromatosis; Q66.71 Congenital pes cavus, right foot; Q66.72 Congenital pes cavus, left foot | CPT/HCPCS: 73630; 99213 ==

== ENCOUNTER → 2024-03-07 15:45 | Outpatient (BNVA) | payer OTHER, SELFPAY | PROVIDERS: PCP Nurse Practitioner; Visit Provider Orthopaedic Surgery | DX: M54.9 Dorsalgia, unspecified (principal); M54.41 Lumbago with sciatica, right side; G89.29 Other chronic pain | CPT/HCPCS: 72110; 99214 ==

== ENCOUNTER 2024-04-05 07:55 | Outpatient (CLI) | payer OTHER, SELFPAY ==
--- NOTE | 2024-04-05 08:00 | MR_ITS ---
WS: [id number] MRI LUMBAR SPINE NONCONTRAST TECHNIQUE: Sagittal T1, T2 and STIR imaging. Axial T1 and T2 imaging. CLINICAL INFORMATION: back pain COMPARISON: MRI 2021 FINDINGS: Mild lumbar curve. No acute compression. No high-grade central canal stenosis. L1-L2: Mild facet arthropathy. Spinal canal and foramen are patent. L2-L3: Mild annular bulging. Mild facet arthropathy. Spinal canal and foramen are patent. L3-L4: Mild annular bulging with mild facet arthropathy. Tiny RIGHT foraminal protrusion with mild RI GHT foraminal narrowing is unchanged compared to previous. L4-L5: Mild annular bulging. Small RIGHT foraminal protrusion slightly impinges the exiting RIGHT L4 nerve root with mild RIGHT foraminal narrowing. Recommend correlation RIGHT L4 nerve root symptoms. T his is similar to previous. LEFT foramen is patent. Mild facet arthropathy. L5-S1: No significant disc bulging. Spinal canal and foramen are patent. Moderate facet arthropathy. Visualized pelvic bony structures: Normal. Paravertebral soft tissues: Normal. Small central protrusion cervical spine on the gravel wheeler imaging with mild central canal stenosis at C5-6 . Slight indentation of the cervical cord. This is similar in appearance to previous. MR/MR lumbar spine wo con* [id number] IMPRESSION: 1. Mild lumbar curve. No acute compression. No high-grade central canal stenos is. 2. RIGHT foraminal protrusion L4-5 slightly impinges the exiting RIGHT L4 nerv e root similar to previous. Recommend correlation RIGHT L4 nerve root symptoms. 3. Small RIGHT foraminal protrusion L3-4 slightly contacts the exiting RIGHT L 3 nerve root appears unchanged. 4. Mild facet arthropathy L3-L5 worse at L5-S1.
== END 2024-04-05 07:56 | disposition home or self-care (01) ==
PROVIDERS: PCP Nurse Practitioner; Visit Provider Orthopaedic Surgery
DX: M47.896 Other spondylosis, lumbar region (principal); M51.26 Other intervertebral disc displacement, lumbar region
CPT/HCPCS: 72148

== ENCOUNTER → 2024-04-09 13:27 | Outpatient (BNVA) | payer OTHER, SELFPAY | PROVIDERS: PCP Nurse Practitioner; Visit Provider Orthopaedic Surgery | DX: M47.816 Spondylosis without myelopathy or radiculopathy, lumbar region (principal); Z09 Encounter for follow-up examination after completed treatment for conditions other than malignant neoplasm | CPT/HCPCS: 72110; 99214 ==

== ENCOUNTER → 2024-04-10 09:45 | Outpatient (BNVA) | payer OTHER, SELFPAY | PROVIDERS: PCP Nurse Practitioner; Visit Provider Podiatrist Foot & Ankle Surgery | DX: M72.2 Plantar fascial fibromatosis (principal); Q66.71 Congenital pes cavus, right foot; Q66.72 Congenital pes cavus, left foot | CPT/HCPCS: 99213 ==

== ENCOUNTER → 2024-05-30 11:15 | Outpatient (BNVA) | payer OTHER, SELFPAY | PROVIDERS: PCP Nurse Practitioner; Visit Provider Podiatrist Foot & Ankle Surgery | DX: M76.61 Achilles tendinitis, right leg; M76.62 Achilles tendinitis, left leg; Q66.71 Congenital pes cavus, right foot; Q66.72 Congenital pes cavus, left foot | CPT/HCPCS: 99213 ==

== ENCOUNTER → 2024-07-01 13:00 | Outpatient (BNVA) | payer OTHER, SELFPAY | PROVIDERS: PCP Nurse Practitioner; Visit Provider Podiatrist Foot & Ankle Surgery | DX: Q66.70 Congenital pes cavus, unspecified foot (principal); M76.61 Achilles tendinitis, right leg; M76.62 Achilles tendinitis, left leg; M79.671 Pain in right foot; M79.672 Pain in left foot | CPT/HCPCS: 99213 ==

== ENCOUNTER 2024-08-09 09:30 | Outpatient (CLI) | payer OTHER, SELFPAY ==
--- NOTE | 2024-08-09 09:35 | MM_ITS ---
WS: [id number] SCREENING DIGITAL BREAST TOMOSYNTHESIS MAMMOGRAM WITH CAD HISTORY: SCREENING COMPARISON: 06/02/2023, 04/19/2022 Bilateral CC and MLO with tomosynthesis and synthetic mammography submitted. Computer aided detection analyzed. Breast composition: There are scattered areas of fibroglandular density. Well- circumscribed high density mass in the anterior RIGHT breast just below the nipple line measures 4 x 3 mm. Additional calcifications are benign in the LEFT breast. No area of architectural distortion. MM/MM scr BI tomosynthesis [id number] IMPRESSION: BI-RADS: 0 - Incomplete: Need additional imaging evaluation. FOLLOW UP: Need Additional Imaging RIGHT breast: Spot compression views (CC and MLO). True ML. Ultrasound to follo w if abnormality persists.
== END 2024-08-09 09:31 | disposition home or self-care (01) ==
PROVIDERS: PCP Nurse Practitioner; Visit Provider Nurse Practitioner
DX: Z12.31 Encounter for screening mammogram for malignant neoplasm of breast (principal); R92.323 Mammographic fibroglandular density, bilateral breasts; N63.10 Unspecified lump in the right breast, unspecified quadrant; R92.1 Mammographic calcification found on diagnostic imaging of breast
CPT/HCPCS: 77063; 77067

== ENCOUNTER 2024-08-12 11:38 | Outpatient (CLI) | payer OTHER, SELFPAY ==
--- NOTE | 2024-08-12 11:40 | MR_ITS ---
WS: [id number] MRI LUMBAR SPINE NONCONTRAST HISTORY: LOW BACK PAIN COMPARISON: 04/05/2024 TECHNIQUE: Sagittal and axial multisequence imaging is submitted. C5-6 Central disc osteophyte complex contacts the ventral cervical cord. Normal lumbar alignment with no compression fractures or marrow edema. Disc spaces and vertebral body heights are well-preserved. Conus terminates normally at L1-2 disc level. L1-L2: Normal. L2-L3: Bilateral facet arthritis without stenosis. No disc protrusions. L3-L4: Very mild annular disc bulging with mild facet arthritis. No significant stenosis. L4-L5: Diffuse annular disc bulge with a RIGHT foraminal broad-based disc protrusion and annular fissure. Disc protrusion contacts the exiting RIGHT L4 nerve root. Mild bilateral facet joint arthritis. Mild encroachment upon the ventral thecal sac. Moderate ligamentum flavum hypertrophy. L5-S1: Mild bilateral facet arthritis. No stenosis. Paravertebral soft tissues are negative. MR/MR lumbar spine wo con* [id number] IMPRESSION: 1. No high-grade central or foraminal stenosis. 2. L4-5: RIGHT foraminal disc protrusion with annular fissure contacts the exi ting RIGHT L4 nerve root, similar to the prior exam. 3. RIGHT foraminal disc protrusion at L3-4 seen on the prior exam is not as ap parent today may've resolved. 4. Facet joint arthropathy from L2-3 through L5-S1.
== END 2024-08-12 11:39 | disposition home or self-care (01) ==
LOC: RAD 11:38
PROVIDERS: PCP Nurse Practitioner; Visit Provider Nurse Practitioner
DX: M51.26 Other intervertebral disc displacement, lumbar region (principal); R93.7 Abnormal findings on diagnostic imaging of other parts of musculoskeletal system; M47.896 Other spondylosis, lumbar region; M47.897 Other spondylosis, lumbosacral region; M25.78 Osteophyte, vertebrae; M51.369 Other intervertebral disc degeneration, lumbar region without mention of lumbar back pain or lower extremity pain
CPT/HCPCS: 72148

== ENCOUNTER 2024-09-09 08:39 | Outpatient (CLI) | payer OTHER, SELFPAY ==
--- NOTE | 2024-09-09 08:51 | MM_ITS ---
WS: [id number] ADDITIONAL VIEWS RIGHT MAMMOGRAM WITH DIGITAL BREAST TOMOSYNTHESIS. RIGHT BREAST ULTRASOUND HISTORY: ABNORMAL MAMMOGRAM COMPARISON: 08/09/2024, 06/02/2023 RIGHT MAMMOGRAM: Spot compression views and true ML with digital breast tomosynthesis and SM. Breast composition: There are scattered areas of fibroglandular density. High density mass measuring 3 x 4 x 5 mm retroareolar. Mass is just slightly greatest lateral to the nipple. No distortion. RIGHT BREAST ULTRASOUND 2-D and color Doppler imaging submitted. Mass and decreased echogenicity in the retroareolar location just slightly lateral to the nipple line measures 5 x 3 x 5 mm. No significant through transmission but this is probably due to position and small size. There is no increased vascularity. There is no solid component. MM/MM diag RT tomosynthesis [id number] IMPRESSION: BI-RADS: 2 - Benign. FOLLOW UP: 1 Year Follow-up Retroareolar mass RIGHT breast corresponds to a benign cyst.
== END 2024-09-09 08:40 | disposition home or self-care (01) ==
PROVIDERS: PCP Nurse Practitioner; Visit Provider Nurse Practitioner
DX: R92.8 Other abnormal and inconclusive findings on diagnostic imaging of breast (principal); R92.323 Mammographic fibroglandular density, bilateral breasts; N63.10 Unspecified lump in the right breast, unspecified quadrant
CPT/HCPCS: 76642; 77061; G0279

== ENCOUNTER 2024-09-19 10:20 | Outpatient (CLI) | payer OTHER, SELFPAY ==
--- NOTE | 2024-09-19 10:15 | MR_ITS ---
WS: [email or web address] EXAMINATION: MR foot RT wo con* [id number] ORDER DATE: 09/19/2024 10:27 AM COMPARISON: None. HISTORY: Q66.70 - Congenital pes cavus, unspecified foot CONTRAST: None. TECHNIQUE: Sagittal T1, sagittal STIR, coronal PD, coronal T2, axial T1, axial T2, and axial PD imaging with fat saturation technique. FINDINGS: History of pes cavus deformity. Calcaneal enthesophytes. Susceptibility artifact overlying the lateral malleolus may be due to prior surgery. Normal ankle mortise. Talar dome is normal in appearance. No evidence of avascular necrosis. Plantar fasciitis with diffuse thickening worse involving the medial plantar insertion. Surrounding soft tissue edema. Normal underlying bone marrow signal in the calcaneus. Plantar fascia measures up to 5 to 6 mm in maximum thickness. Associated interstitial tear in the plantar fascia measuring 10mm in length best appreciated on the sagittal imaging. Distal Achilles is normal in appearance. Mild degenerative arthritis involving the forefoot and midfoot. Normal peroneal tendons. Visualized extensor and flexor compartment tendons appear normal. No other acute findings. MR/MR foot RT wo con* [id number] IMPRESSION: 1. Congenital pes cavus deformity. 2. Calcaneal enthesophytes. 3. Plantar fasciitis described above with diffuse thickening of the medial ins ertion. Associated surrounding soft tissue edema. Normal bone marrow signal in the calcaneus. 4. Small interstitial tear involving the plantar fascia best appreciated on sa gittal imaging measuring 10 mm in length. 5. No other acute findings.
== END 2024-09-19 10:21 | disposition home or self-care (01) ==
PROVIDERS: PCP Nurse Practitioner; Visit Provider Podiatrist Foot & Ankle Surgery
DX: Q66.71 Congenital pes cavus, right foot (principal); M79.672 Pain in left foot; M77.31 Calcaneal spur, right foot; M72.2 Plantar fascial fibromatosis; R93.6 Abnormal findings on diagnostic imaging of limbs; S96.811A Strain of other specified muscles and tendons at ankle and foot level, right foot, initial encounter; M19.071 Primary osteoarthritis, right ankle and foot
CPT/HCPCS: 73718

== ENCOUNTER → 2024-11-18 13:47 | Outpatient (BNVA) | payer OTHER, SELFPAY | PROVIDERS: PCP Nurse Practitioner; Visit Provider Podiatrist Foot & Ankle Surgery | DX: M72.2 Plantar fascial fibromatosis (principal) | CPT/HCPCS: 99213 ==

== ENCOUNTER → 2025-02-24 13:41 | Outpatient (BNVA) | payer OTHER, SELFPAY | PROVIDERS: PCP Nurse Practitioner; Visit Provider Podiatrist Foot & Ankle Surgery | DX: M76.61 Achilles tendinitis, right leg (principal); M76.62 Achilles tendinitis, left leg | CPT/HCPCS: 99214 ==

== ENCOUNTER → 2025-03-19 10:22 | Outpatient (BNVA) | payer OTHER, SELFPAY | PROVIDERS: PCP Nurse Practitioner; Visit Provider Podiatrist Foot & Ankle Surgery | DX: M72.2 Plantar fascial fibromatosis (principal); M76.61 Achilles tendinitis, right leg; M76.62 Achilles tendinitis, left leg; Q66.71 Congenital pes cavus, right foot; Q66.72 Congenital pes cavus, left foot | CPT/HCPCS: 99214 ==

== ENCOUNTER 2025-04-11 05:57 | Day surgery (SDC) | payer OTHER, SELFPAY ==
[2025-04-11] VITALS (15 sets, daily range): BP systolic 102–124; BP diastolic 54–92; PULSE 70–98; RESP 12–18; TEMP 36.2–37.2; O2SAT 91–98; BMI 33.5
--- NOTE | 2025-04-11 06:15 | W.PM.OPSUD ---
Surgery/Procedure H&P Update DATE OF PROCEDURE: April 11, 2025 DATE H&P PERFORMED: 03/19/25 H&P UPDATE INFORMATION: I have reviewed H&P completed within last 30 days, I have examined patient prior to procedure, No changes to prior documentation, H&P is in [facility] EMR on date indicated and Risks and benefits of the procedure reviewed PREOP DIAGNOSIS: Bilateral Achilles tendinosis PRIMARY INDICATION FOR PROCEDURE: Achilles tendinosis PLANNED PROCEDURE: Operation Date: 04/11/25 07:40 Proposed Procedures p Achilles Tendon Repair(Bilateral) - Deepak Sheehan DPM s Platelet rich plasma injection right Achilles and left Achilles(Bilateral) - Deepak Sheehan DPM
--- NOTE | 2025-04-11 06:15 | W.PM.BPON ---
Date of Procedure: 09/01/23 Surgeon: Deepak Sheehan DPM [employer] Developer(s): Ruslan Procedure(s) performed: Left and right Achilles tendon debridement with injection of platelet rich plasma. Findings of the procedure(s): Left and right Achilles tendinosis Estimated blood loss: 2 mL Specimen(s) removed: No specimens removed Post-operative diagnosis: Left and right Achilles tendinosis
--- NOTE | 2025-04-11 06:16 | PM.OP ---
Operative Report Date of procedure: April 11, 2025 Pre-op diagnosis: Achilles tendinosis of right lower extremity ICD M76.61 Post-op diagnosis: Achilles tendinosis of right lower extremity ICD M76.61 Procedure done: 1) right Achilles tendon repair. CPT code 78407 2) platelet rich plasma injection left Achilles. 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 The risks and potential complications were explained in detail, including but not limited to infection, wound dehiscence or soft tissue complications, bleeding and hematoma, chronic edema, neuritis or nerve damage producing numbness or chronic pain, CRPS, failure to relieve pain or worsening pain, thick / painful / unsightly scar, limited motion / stiffness, malposition, delayed union, malunion, or nonunion, fracture, reaction to implants, anesthetic complications, venous thromboembolism, and deformity recurrence. I discussed the notion of no regrets with the patient as it pertains to complications and outcomes. The patient seemed to understand the nature of the proposed care and required convalescence. They asked appropriate questions, answered to their satisfaction. They are aware no guarantees can be made as to a satisfactory outcome and they understand there may be other possible unforeseen complications or outcomes not listed here that will be treated accordingly if they arise. There were no written or implied guarantees given to the patient. They gave informed consent to proceed. Procedure: Under mild sedation patient was brought to the operating room and remained on the gurney in supine position. A timeout was performed. Anesthesia was then administered by the anesthesia service. Local anesthesia injected by myself consisting of 20 cc of 0.5% Marcaine plain in a V-block to the right posterior leg with additional 20 cc of Exparel infiltrated subcutaneously at the operative site in a grid like fashion. Well-padded pneumatic tourniquet applied to the right high calf. The right lower extremity was scrubbed, prepped and draped utilizing normal aseptic technique. Right foot and ankle were elevated and Esmarch bandage utilized to examine with the right foot and ankle. Tourniquet was then inflated to 250 mmHg. Attention was directed to a thickened and fibrosed Achilles tendon to the right lower extremity, incision was made through skin with dissection down through subcutaneous tissue to the layer of the right Achilles peritenon which was incised, tendon was fibrosed and degenerative with thickening this was debrided of devitalized tendon along with micro debridement with Coblation set at 4 with saline drip. The right Achilles tendon was debrided along the watershed zone and the incision flushed with saline solution, 2 cc of PRP harvested from the patient utilizing Erick machine and preop blood draw, this was injected in a grid like fashion within the right Achilles tendon. Area was irrigated and covered with an OpSite. Patient was immobilized with a cam boot. Tourniquet deflated and a prompt hyperemic response is noted to the distal digits of the right foot. Patient tolerated the procedure and anesthesia well transferred to PACU with vital signs stable vascular status intact. Following a period of postoperative monitoring should be discharged home without home care instructions and scheduled follow-up.
--- NOTE | 2025-04-11 07:08 | ANES.PREANE2 ---
Pre-Anesthetic Assessment Height/Weight: Height 1.68 m Weight 94.347 kg Temp Pulse Resp BP Pulse Ox O2 Del Method 97.1 F L 98 18 109/92 94 Room Air 04/11/25 06:11 04/11/25 06:11 04/11/25 06:11 04/11/25 06:11 04/11/25 06:11 04/11/25 06:11 Preop Diagnosis: Bilateral Achilles tendinosis Operation Date: 04/11/25 07:40 Proposed Procedures p Achilles Tendon Repair(Bilateral) - Deepak Sheehan DPM s Platelet rich plasma injection right Achilles and left Achilles(Bilateral) - Deepak Sheehan DPM Familial anesthetic complications: None Was Beta Mar taken within 24 hours: N/A Was Clonidine taken within 24 hours: N/A Last intake: Intake Last Liquid Date 04/10/25 Last Liquid Time 23:00 Last Solid Date 04/10/25 Last Solid Time 23:00 Social No alcohol and No tobacco Exam alert, oriented x 3, clear to auscultation bilaterally and regular rate & rhythm Pulmonary Sleep Apnea GI Gastroesophageal Reflux Disease Anesthetic Plan ASA status: 2 Anesthesia: MAC Risk of > 500 ml blood loss (7ml/kg in children): No Medications/Allergies Home Medications ?Medication ?Instructions ?Recorded ?Confirmed ?Last Taken ?Type acetaminophen 325 mg capsule 325 mg PO QID PRN Pain 11/26/20 04/11/25 04/10/25 History cetirizine 10 mg tablet 10 mg PO DAILY 11/26/20 04/10/25 Unknown History fluticasone propionate 50 1 spray intranasal DAILY 11/26/20 04/11/25 04/03/25 History mcg/actuation nasal spray,suspension loratadine 10 mg capsule 10 mg PO DAILY 11/26/20 04/11/25 04/03/25 History olopatadine 0.1 % eye drops 1 drp ophthalmic (eye) BID 11/26/20 04/11/25 04/03/25 History propranolol 160 mg capsule,24 160 mg PO DAILY 11/26/20 04/11/25 04/03/25 History hr,extended release benzonatate 100 mg capsule 100 mg PO TID PRN cough #14 caps 06/07/21 04/10/25 Unknown Rx (Natalie Oakley) diclofenac sodium 50 mg 50 mg PO BID arthritis #60 tabs 12/21/21 04/11/25 04/03/25 Rx tablet,delayed release SALVIA ORAL SPTRAY 01/05/22 03/19/25 Unknown History famotidine 20 mg tablet 20 mg PO BID 01/05/22 04/11/25 04/03/25 History lidocaine 5 % topical patch 2 patch topical DAILY 01/05/22 04/11/25 Unknown History sumatriptan succinate 50 mg tablet See Rx Instructions PO .COMPLEX 01/05/22 04/11/25 Unknown History venlafaxine 75 mg tablet 150 mg PO DAILY 01/05/22 04/11/25 04/03/25 History Cervical Traction Device #1 ea 04/26/22 03/19/25 Unknown Rx Incorporate Ultrasound and #1 ea 05/24/22 03/19/25 Unknown Rx iontophoresis Therapy to the left Plantar Fascia gabapentin 300 mg capsule 300 mg PO TID pain #90 caps 05/24/22 04/11/25 04/03/25 Rx meclizine 25 mg tablet 25 mg PO TID PRN vertigo #30 tabs 06/08/22 04/11/25 Unknown Rx 3 Pairs of Compression Socks #1 ea 07/05/22 03/19/25 Unknown Rx albuterol sulfate 90 mcg/actuation 2 inh inhalation Q4H PRN shortness 08/20/22 04/10/25 Unknown Rx aerosol inhaler of breath or wheezing #8.5 grams estradiol 0.01% (0.1 mg/gram) 1 g vaginal DAILY #42.5 grams 09/13/23 04/11/25 04/03/25 Rx vaginal cream magnesium 200 mg tablet 200 mg PO DAILY #30 tabs 01/11/24 04/11/25 04/02/25 Rx ammonium lactate 12 % lotion 1 applic topical DAILY #400 grams 08/02/24 04/11/25 Unknown Rx ascorbic acid (vitamin C) 1,000 mg 1,000 mg PO DAILY 30 days #30 tabs 08/02/24 04/11/25 04/08/25 Rx tablet kinesiology tape #2 ea 11/18/24 03/19/25 Unknown Rx orthopedic shoes and custom molded #1 ea 03/19/25 03/19/25 Unknown Rx accommodative orthotics with metatarsal pad tramadol 50 mg tablet 50 mg PO Q4H PRN pain #42 tabs 04/10/25 Unknown Rx Allergies Allergy/AdvReac Type Severity Reaction Status Date / Time cephalexin (From Keflex) Allergy ALGY-Hives Verified 04/11/25 06:05 clindamycin Allergy ALGY-Hives Verified 04/11/25 06:05 codeine Allergy ALGY-Hives Verified 04/11/25 06:05 hydrocodone Allergy ALGY-Hives Verified 04/11/25 06:05 oxycodone Allergy ALGY-Hives Verified 04/11/25 06:05 Penicillins Allergy ALGY-Anaphy Verified 04/11/25 06:05 laxis Sulfa (Sulfonamide Allergy ALGY-Hives Verified 04/11/25 06:05 Antibiotics) Current Medications Generic Name Dose Route Start Last Admin Trade Name Freq PRN Reason Stop Dose Admin Sodium Chloride 1,000 mls @ 30 mls/hr 04/11/25 06:15 04/11/25 07:04 Sodium Chloride 0.9% IV 04/12/25 06:14 30 mls/hr .Q24H SARA Administration PFSH Anesthesia Medical History No pertinent family history Surgical History (Updated 04/10/25 @ 09:24 by Deepak Sheehan DPM) S/P foot surgery, right No pertinent past surgical history Social History Smoking and tobacco/nicotine status: never used tobacco/nicotine Second hand smoke exposure: Yes Alcohol intake: former Substance/Drug Use: never
[2025-04-11] MEDS: BUPivacaine liposome 13.3 mg/mL SDV 20 mL 266 MG INFILTRATI (07:51)
[2025-04-11] MEDS: BUPivacaine 0.5% INJ 30 mL XX (07:51)
[2025-04-11] MEDS: fentaNYL 50 mcg/mL INJ 2mL IVP ×2 (08:14→08:25)
[2025-04-11] MEDS: diphenhydrAMINE 50 mg/mL SDV 1mL 25 MG IVP (09:10)
--- NOTE | 2025-04-11 09:30 | ANE.PACU2 ---
Inpatient post-anesthesia follow up: Airway intact: Yes Vital signs: Temperature 97.7 F Pulse Rate 74 Respiratory Rate 16 Blood Pressure 108/84 Pulse Oximetry 95 Oxygen Delivery Me thod Room Air Oxygen Flow Rate Fraction of Inspir ed Oxygen Hydration adequate: Yes Nausea and vomiting: No Pain level: 1 Mental status: Baseline
== END 2025-04-11 09:29 | disposition home or self-care (01) ==
PROVIDERS: PCP Nurse Practitioner; Visit Provider Podiatrist Foot & Ankle Surgery
PROC: (CPT 27650; principal; 2025-04-11 07:40)
PROC: (CPT 0232T; 2025-04-11 07:40)
DX: M76.61 Achilles tendinitis, right leg (principal); G47.30 Sleep apnea, unspecified; K21.9 Gastro-esophageal reflux disease without esophagitis; Z79.891 Long term (current) use of opiate analgesic
CPT/HCPCS: 27652; 20550; C1713; J0666; J1200; J2250; J2704; J3010; J3373; J3490; J7030; J7050; J9999

== ENCOUNTER → 2025-04-17 07:39 | Outpatient (BNVA) | payer OTHER, SELFPAY | PROVIDERS: PCP Nurse Practitioner; Visit Provider Podiatrist Foot & Ankle Surgery | DX: M72.2 Plantar fascial fibromatosis (principal); Q66.70 Congenital pes cavus, unspecified foot; M76.61 Achilles tendinitis, right leg; M76.62 Achilles tendinitis, left leg | CPT/HCPCS: 99024 ==

== ENCOUNTER → 2025-05-22 14:24 | Outpatient (BNVA) | payer OTHER, SELFPAY | PROVIDERS: PCP Nurse Practitioner; Visit Provider Podiatrist Foot & Ankle Surgery | DX: M72.2 Plantar fascial fibromatosis (principal); Q66.70 Congenital pes cavus, unspecified foot; M76.61 Achilles tendinitis, right leg; M76.62 Achilles tendinitis, left leg | CPT/HCPCS: 99024 ==